=== PATIENT | female | born 2000 | race Caucasian/White ===

== ENCOUNTER 2024-08-16 10:17 | Emergency (ER) | payer SELFPAY ==
[2024-08-16 10:38] VITALS: BP 135/88; PULSE 104; RESP 16; TEMP 36.3; O2SAT 98
--- NOTE | 2024-08-16 10:42 | ED_ITS ---
HPI - URI/Sore Throat General Chief Complaint: Upper Respiratory Infection Stated Complaint: congestion/ bad cough Time Seen by Provider: 08/16/24 10:49 Source: patient, RN notes reviewed and old records reviewed Mode of arrival: ambulatory Limitations: no limitations History of Present Illness HPI Narrative: 24-year-old female presents to the [facility] with bilateral ear pain, pressure, congestion, cough that started on Tuesday. Has been taking DayQuil, NyQuil and Tylenol. Treatments prior to arrival: acetaminophen and cold medicine Related Data Allergies Allergy/AdvReac Type Severity Reaction Status Date / Time No Known Allergies Allergy Verified 08/16/24 10:47 Review of Systems Review of Systems: All systems reviewed & are unremarkable except as noted in HPI and below Constitutional: Constitutional: Reports as per HPI, Reports body ache(s), Reports fatigue and Denies fever(s) ENT: Reports as per HPI, Reports otalgia and Reports sinus pain Cardiovascular: Cardiovascular: Reports no additional cardiovascular complaints, Denies chest pain and Denies dyspnea Respiratory: Respiratory: Reports no additional respiratory complaints, Denies chest congestion, Denies cough and Denies dyspnea Musculoskeletal: Musculoskeletal: Reports no additional musculoskeletal complaints Integumentary/Breasts: Skin/Breast: Reports system reviewed and no additional complaints, except as docu PMFSH Comments At the time of my signature, I reviewed and agree with the nursing past medical, surgical, social, and family history. There is no relevant family history pertinent to the patient complaint. Exam Const: General: cooperative, no acute distress, well developed, alert, tired appearing, uncomfortable and well nourished Nutritional Appearance: well nourished and obese Orientation/consciousness: patient oriented x3 Limitations: no limitations HENMT: Head: normal to inspection Ears: hearing grossly normal bilaterally, external ears normal, EAC's normal, mastoids normal, no periauricular adenopathy and TM abnormal bulging bilateral, erythematous on the left and with fluid behind the TM on the right Face/Nose/Sinus: Normal external nose present and Nasal discharge present clear bilateral Throat: tonsils normal, postnasal drainage and no uvular edema Eyes: General: appearance normal, both eyes and all related structures Alignment and Position: alignment normal Neck: Neck: normal visual inspection, full ROM, no lymphadenopathy and no meningeal signs Chest: Chest palpation & inspection: normal inspection of the chest Resp: Effort & Inspection: normal respiratory effort and able to speak in complete sentences Auscultation: clear to auscultation bilaterally, no crackles, no rales, no rhonchi and no wheezes Cardio: Rate: regular rate Skin: General skin exam: normal color and no rashes or lesions noted Neuro: General: patient oriented x3, gait normal, moves all extremities and no meningeal signs Cognition (Neuro): normal cognition Speech: normal speech Gait exam (Neuro): Normal gait present Extrem: General: normal to inspection, full ROM, capillary refill normal and normal gait Psych: Appearance: grossly normal and well kempt Mental Status: mental status grossly normal Speech and movement: Normal speech and movement present and Clear speech present Affect: normal affect Attitude: cooperative Course Course Level of Care: Express Care Visit Vital Signs Vital signs: Vital Signs Temperature 97.3 F L 08/16/24 10:38 Pulse Rate 104 H 08/16/24 10:38 Respiratory Rate 16 08/16/24 10:38 Blood Pressure 135/88 08/16/24 10:38 Pulse Oximetry 98 08/16/24 10:38 Oxygen Delivery Room Air 08/16/24 10:38 Temperature 97.3 F L 08/16/24 10:38 Pulse Rate 104 H 08/16/24 10:38 Respiratory Rate 16 08/16/24 10:38 Blood Pressure 135/88 08/16/24 10:38 Pulse Oximetry 98 08/16/24 10:38 Oxygen Delivery Room Air 08/16/24 10:38 Reviewed MDM - URI/Sore Throat MDM Narrative Medical decision making narrative: Patient sitting in exam room. Nontoxic, vitals stable. Patient is negative flu COVID and strep. Will culture for strep Patient with erythema to the left TM, will treat with antibiotic for otitis media Patient appropriate for outpatient treatment with close follow-up Discharge instructions reviewed with patient, as well as provided in writing per nursing staff. The instructions also include specific and strict return/GO TO THE ER as well as f/u information. All questions have been answered, and the patient deny any further questions with discharge and discharge plan. Some parts of this dictation were generated by voice recognition software and may contain typographical and/or grammatical inaccuracies. Differential Diagnosis Differential diagnosis: Likely upper respiratory infection, otitis media, sinusitis, viral infection, bronchitis, influenza and pharyngitis Lab Data Labs: Lab Results 08/16/24 Range/Units 10:44 POC Influenza A Ag Negative (Negative) POC Influenza B Ag Negative (Negative) POC SARS CoV-2 Ag Negative (Negative) POC Grp A Strep Screen Negative (Negative) Reviewed Critical Care Time Critical Care Time Critical Care Time: No Discharge Plan Discharge Clinical Impression: Acute left otitis media, Post-nasal drainage Upper respiratory infection Qualifiers: URI type: unspecified viral URI Qualified Code(s): J06.9 - Acute upper respiratory infection, unspecified Patient Disposition: Home, Self-Care Condition: Stable Instructions: Antibiotic Form, Ear Infection (GEN), Postnasal Drip (DC) Additional Instructions: Take antibiotic as prescribed for the ear infection Your rapid strep swab was negative today at [facility]. A throat culture will be sent to the laboratory for further testing. If the test is positive, you will receive a phone call within 48 hours and an appropriate antibiotic will be initiated at that time. Your rapid COVID test were negative Your rapid flu test was negative It is very important to treat your symptoms. Drink plenty of water, Gatorade, Pedialyte, ice pops or Jell-O. -Alternate Tylenol and Motrin per package directions for fever or pain. You can alternate every 4 hours -Antihistamine medication such as Zyrtec/Claritin/Jenae during the day can help improve symptoms. -doing daily nasal irrigations can help relieve pressure your sinuses. Things like a Neti pot -Use Flonase twice a day for 5 days then daily to help reduce the inflammation and dry up your sinuses. -You can also use Mucinex. Be sure to drink plenty of water with this medication at least 8 ounces with every dose and it is important to drink 8 to 10 glasses of water per day. Water is a natural decongestant -Eat and drink things that are easy to swallow, like tea or soup, or popsicles. -Oral rinses such as: Salt water gargles and/or may use topical anesthetic (eg. Chloraseptic spray) or lozenges to relieve dryness or throat pain). -Frequent hand washing or hand patient assessment coordinator is one of the best ways to prevent spread of infection. -Using a vaporizer or humidifier at night will also help thin secretions and help with coughing up phlegm. -Follow up with primary care provider in 7-10 days if condition is not improving - For new or worsening symptoms go directly to the nearest ER Patient Language: [place] Prescriptions: New amoxicillin 875 mg tablet 875 mg PO Q12H Qty: 20 0RF Follow-up/Referrals: Zurdo Sharp MD [Physician] - PHYSICIAN,[facility]ER [Primary Care Provider] - Stand Alone Forms: Work/School Release IP Time of Disposition: 11:00
[2024-08-16 10:58] LABS: EDSTREPNEGPOS1 Negative (Negative)
--- OUTSIDE RECORDS SUMMARY | 2024-08-16 11:01 | XMS_ITS | Clinical Summary ---
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 Potassium, pl 3.4 3.3 - 4.9 mmol/L [facility] (SHY) Chloride 106 97 - 110 mmol/L [facility] (SHY) CO2 21(L) 22 - 32 mmol/L [facility] (SHY) Anion gap 11 2 - 15 mmol/L [facility] (SHY) BUN 5(L) 6 - 25 mg/dL [facility] (SHY) Creatinine 0.65 0.60 - 1.10 mg/dL [facility] (SHY) Glucose 98 70 - 199 mg/dL [facility] (SHY) Comment: Interpretive Data Fasting glucose >/= 126 mg/dl is diagnostic for diabetes. Fasting is defined as no caloric intake for at least 8 hours. Fasting glucose between 100 mg/dl to 125 mg/dl is diagnostic of prediabetes. In a patient with classic symptoms of hyperglycemia or hyperglycemic crisis, a random glucose >/= 200 mg/dl is diagnostic for diabetes. In the absence of unequivocal hyperglycemia, results should be confirmed by repeat testing. The classification and Diagnosis of Diabetes Diabetes Care 2021; 46: S19-S40. Current interpretive data was last revised 2022. Calcium 8.1(L) 8.5 - 10.3 mg/dL [facility] (SHY) Blood 06/06/2024 8:58 AM COURTROOM DEPUTY OR CALENDAR CLERK 06/06/2024 9:06 AM COURTROOM DEPUTY OR CALENDAR CLERK us Rosemary Tolentino NP LAB BLOOD ORDERABLE S Final Result Performing Organization Address [facility]/ZIP Co de Phone Number NICKY ZEE (SHY) 1 [facility] [place] [address] * TB test, quantiferon gold (06/06/2024 3:40 AM COURTROOM DEPUTY OR CALENDAR CLERK) [facility] Quantiferon TB Gold Negative Negative [place] [facility] Comment: No interferon-gamma response to M. tuberculosis antigens was detected. Latent infection with M. tuberculosis is unlikely. A single negative result does not exclude infection with M. tuberculosis. In patients at high risk for M.tuberculosis infection, a second test should be considered in accordance with the 2017 ATS/IDSA/CDC Clinical Practice Guidelines for Diagnosis of Tuberculosis in Adults and Children [Xanderinsohn DM et. al. Clin. Infect. Dis. 2017;64(2):111-115]. The reference range for the 'TB1 Ag minus Nil Result' and 'TB2 Ag minus Nil Result' is an Interferon-gamma level <0.35 IU/mL. TB-Nil 0.00 IUnits/mL [facility] (SHY) TB2-Nil 0.00 IUnits/mL [facility] (SHY) Mitogen-Nil 1.94 IUnits/mL [facility] (SHY) NIL 0.02 IUnits/mL [facility] (SHY) Comment: Test Performed by: [place] [id number] Meat Team Lead: Yany Gee Ph.D.; CLIA# [id number] Blood 06/06/2024 3:40 AM COURTROOM DEPUTY OR CALENDAR CLERK 06/06/2024 3:46 AM COURTROOM DEPUTY OR CALENDAR CLERK us Marsha FERRARA LAB BLOOD ORDERABLES Fin al Result Performing Organization Address City/[facility]/ZIP Co de Phone Number NICKY ZEE (TROY) [address] [place] [address] [facility] * (ABNORMAL) Calprotectin, fecal (06/05/2024 1:36 PM COURTROOM DEPUTY OR CALENDAR CLERK) Calprotectin, fecal >3000(H) <50.0 (Normal) mcg/g [facility] Comment: Interpretation: Abnormal (>120 mcg/g) Test Performed by: [facility] [address] [place] [address] Meat Team Lead: Yany Gee Ph.D.; IA# [id number] Stool 06/05/2024 1:36 PM COURTROOM DEPUTY OR CALENDAR CLERK 06/05/2024 1:43 PM COURTROOM DEPUTY OR CALENDAR CLERK Marsha FERRARA LAB BODY FLUIDS AND STOO LS ORDERABLES Final Result Performing Organization Address City/[facility]/ZIP Co de Phone Number [facility] (SHY) 1 [facility] [place] [address] [place] [facility] * (ABNORMAL) Leukocytes, fecal (06/05/2024 1:36 PM COURTROOM DEPUTY OR CALENDAR CLERK) WBC, fecal Many leukocyte s(A) No leukocytes Comment: Interpretive Data Testing performed by microsopy. Current Interpretive Data was last revised on 2022 Stool 06/05/2024 1:36 PM COURTROOM DEPUTY OR CALENDAR CLERK 06/05/2024 1:43 PM COURTROOM DEPUTY OR CALENDAR CLERK Marsha FERRARA LAB BODY FLUIDS AND STOO LS ORDERABLES Final Result [facility] (SHY) [address] [facility] [place] [address] * Cryptosporidium and Giardia antigen assay Stool (06/05/2024 1:36 PM COURTROOM DEPUTY OR CALENDAR CLERK) Giardia Ag Negative Negative Comment:Testing performed by : [facility], [address] [facility]., [address] Cryptosporidium Ag Negative Negative [place] ZEE (TROY) Comment: Interpretive data: Testing performed by the [facility] using an immunoassay that detects Cryptosporidium and Giardia antigens in stool specimens. If comprehensive examination for ova and parasites is required, please request Ova and Parasite Examination . Testing performed by: [facility], [address] [place]., [address] Stool 06/05/2024 1:36 PM COURTROOM DEPUTY OR CALENDAR CLERK 06/05/2024 6:03 PM COURTROOM DEPUTY OR CALENDAR CLERK Marsha FERRARA LAB MICROBIOLOGY - GENER AL ORDERABLES Final Result Performing Organization Address [facility] de Phone Number NICKY ZEE (SHY) [address] [facility] [place] [address] * Stool culture Stool Rectum (06/05/2024 1:36 PM COURTROOM DEPUTY OR CALENDAR CLERK) Direct Specimen Exam Shiga Toxin Testing: Antigen detection assay for Shiga-toxin NEGATIVE for Shiga Toxin 1 and Shiga Toxin 2. Comment:Testing performed by : [facility], [address] [place]., [address] Report Final Report: No growth of enteric bacterial pathogens NICKY ZEE (SYH) Comment:Testing performed by : [facility], [address] [place] [address] Stool (Rectum) 06/05/2024 1: 36 PM COURTROOM DEPUTY OR CALENDAR CLERK 06/05/2024 6:02 PM COURTROOM DEPUTY OR CALENDAR CLERK Narrative NICKY ZEE (SHY) - 06/09/2024 12:30 PM COURTROOM DEPUTY OR CALENDAR CLERK Specimen received culture and sensitivity stool transport vial Testing performed by [facility] ([phone]). Routine stool cultures include procedures to detect Salmonella, Shigella, Edwardsiella, Aeromonas, Pleisiomonas, Campylobacter, Yersinia, E. coli O157, and Shiga-like toxins. Vibrio is cultured only upon special request. If Vibrio is suspected, please call the laboratory at [phone]. Interpretive data was last updated October 04, 2016. Marsha FERRARA LAB MICROBIOLOGY - GENER AL ORDERABLES Final Result Performing Organization Address [facility] de Phone Number N[facility]Y ZEE (SHY) [address] [facility] [place] [address] * Hemochromatosis HFE Gene Analysis (06/05/2024 11:58 AM COURTROOM DEPUTY OR CALENDAR CLERK) HFE Genotype Negative [facility] Comment:Testing performed by : [facility], [address] [place]., [address] HFE p.C282Y Negative NICKY ANAYA (TROY) Comment:Testing performed by : [facility], [address] [facility], [address] HFE p.H63D Negative NICKY [place] (TROY) Comment:Testing performed by : [facility], [address] [facility], [address] HFE Interpretation This genotype suggests low risk of hereditary hemochromatosis (HH) but does not rule out diagnosis or risk for HH. Approximately 6% of Caucasians with HH in [place] have this genotype. The frequency in other ethnicities may vary. Correlation of clinical findings and family history with genotype results is recommended for establishing a diagnosis of HH. HH is an autosomal recessive disorder of iron metabolism that results in iron overload and potential organ failure. It is one of the most common genetic disorders in individuals of - ancestry, with an estimated carrier frequency of 10%. HH is associated with variants in the HFE gene. Most individuals with HH (60-90%) are homozygous for the p.C282Y variant. A smaller percentage of affected individuals are either compound heterozygous for the p.C282Y and p.H63D variants (3%-8%), or homozygous for the p.H63D variant (2%). Genetic counseling is recommended for discussion of the clinical implications of this result. NICKY ZEE (TROY) Comment:Testing performed by : [facility], [address] [place]., [address] HFE Specimen Whole Blood ANDREA ZEE (TROY) Comment:Testing performed by : [facility], [address] [place] [address] HFE Result Review Final report reviewed by: Christal Higgins BA, VANESSA([facility]) Chemical Preparer, on 06/08/2024 10:43:55 CST. [facility] (SHY) Comment: Interpretive Data Method: This assay detects the two variants in the HFE gene, p.C282Y (NM_000410.2: c.845G>A) and p.H63D (NM_000410.2: c.187C>G), that are commonly associated with HH. The variants are detected by a multiplex PCR based assay performed on the [employer] Fast Dx Real-Time PCR instrument. Limitations: Bone Marrow transplants from allogenic donors may interfere with interpretation of test results. Alternative specimen types including cultured fibroblasts may be necessary for accurate testing results. This assay does not rule out the presence of other disease-causing mutations in the HFE gene or in other genes associated with HH. Since genetic variation and additional factors can affect the accuracy of genotyping, these results should be interpreted in the context of clinical findings, family history, and other laboratory testing (e.g. serum transferrin-iron saturation and serum ferritin). This test was developed and its performance characteristics determined by the [facility] at [facility] in a manner consistent with CLIA requirements. This test has not been cleared or approved by the U.S. Food and Drug Administration. References: Dimitris KJ, Laurie SANCHES, Suresh CC, et al. Zrbu-wmyjafny-cjgyigb disease in HFE hereditary hemochromatosis. N Engl J Med. 2008;358:221 3 0. Marc BR, Parveen PC, Ching KV, et al. Diagnosis and management of hemochromatosis: 2011 practice guideline by the [place] Association for the Study of Liver Diseases. Hepatology. 2011;54:328 4 3. Abdon LAVELLE, Ferrari CQ, Kaleb RT. HFE gene: structure, function, mutations, and associated iron abnormalities. Gene. 2015;574:179 9 2. Luis KhalilJ, Jean LM, Carin LB, et al. Clinical and biochemical abnormalities in people heterozygous for hemochromatosis. N Engl J Med. 1996;335:1799 8 05. Kurt FERRARA, Curtis CHAEVZ, Tan DJ, Ran Nicholas D, Maddy E, Justa GloriaK. A population- based study of the biochemical and clinical expression of the H63D hemochromatosis mutation. Gastroenterology. 2002;122:646 5 1. Nils Lozanoi NA, Chris GW, et al. HFE C282Y/H63D compound heterozygotes are at low risk of hemochromatosis-related morbidity. Hepatology. 2009;50:94 1 01. Javier NOVA, Karina G, Crispin W. HFE gene and hereditary hemochromatosis: a HuGE review. Human Genome Epidemiology. Am J Epidemiol. 2001 Dec 28; 154(3):193-206. Parvin A, Krystin C, Layne Everett, et al. Two novel nonsense mutations of HFE gene in five unrelated [place] patients with hemochromatosis. Gastroenterology. 2000;119:441 5 . Shahida EP, Grady BA, Aden EL, et al. Screening for hereditary hemochromatosis: a systematic review for the U.S. Preventive Services Task Force. Rohini Iv Therapy Nurse Med. 2006;145:209 2 3. This test was performed at: [facility], [facility], [facility]#[id number], Rohini Rosen, Ph.D., [place], [address], [place] Current interpretive data was last revised 2021. Testing performed by: [facility], 1 [facility], [place]., [address] Blood 06/05/2024 11:5 8 AM COURTROOM DEPUTY OR CALENDAR CLERK 06/05/2024 5:41 PM COURTROOM DEPUTY OR CALENDAR CLERK Marsha FERRARA LAB GENETIC TESTING [place] l Result [facility] TROY) [address] [facility] [place] [address] [facility] * XR Chest 1 View (06/05/2024 10:51 AM COURTROOM DEPUTY OR CALENDAR CLERK) Anatomical Region Laterality Modality Body, Chest N/A Computed Radiogr aphy 06/05/2024 10:5 8 AM COURTROOM DEPUTY OR CALENDAR CLERK Narrative 06/05/2024 10:58 AM COURTROOM DEPUTY OR CALENDAR CLERK EXAM DESCRIPTION: XR CHEST 1 VIEW REASON FOR STUDY: UC workup Ulcerative colitis who comes emergency department today for worsening abdominal pain. Patient states that she has had rectal bleeding for the last 6 months but over last 2 days her abdominal pain has worsened. TECHNIQUE: 1 radiographic view(s) of the chest. COMPARISON: 09/25/2021 FINDINGS: LUNGS: No focal opacity, pleural effusion, or pneumothorax. HEART/MEDIASTINUM: Cardiac silhouette normal in size. Mediastinal and hilar contours appear normal. LINES/TUBES: None. BONES: No acute osseous abnormality. IMPRESSION: No acute pulmonary process. THIS IS AN ELECTRONICALLY VERIFIED FINAL REPORT 06/05/2024 10:58 AM - Electronically signed by Hernandez Brown M.D. MM: MM Report ID: [id number] Reading Location: [id number] Procedure Note Hernandez Brown MD - 06/05/2024 EXAM DESCRIPTION: XR CHEST 1 VIEW REASON FOR STUDY: UC workup Ulcerative colitis who comes emergency department today for worsening abdominal pain. Patient states that she has had rectal bleeding for thelast 6 months but over last 2 days her abdominal pain has worsened. TECHNIQUE: 1 radiographic view(s) of the chest. COMPARISON: 09/25/2021 FINDINGS: LUNGS: No focal opacity, pleural effusion, or pneumothorax. HEART/MEDIASTINUM: Cardiac silhouette normal in size. Mediastinal andhilar contours appear normal. LINES/TUBES: None. BONES: No acute osseous abnormality. IMPRESSION: No acute pulmonary process. THIS IS AN ELECTRONICALLY VERIFIED FINAL REPORT 06/05/2024 10:58 AM - Electronically signed by Hernandez Brown M.D. MM: MM Report ID: [id number] Reading Location: [id number] Marsha FERRARA IMG XR PROCEDURES Final Result * eGFR (06/05/2024 6:43 AM COURTROOM DEPUTY OR CALENDAR CLERK) eGFR >90 >=60 mL/min/1. 73 m2 Comment: Interpretive Data Reference Interval Normal >/= 90 mL/min/1.73m2 Mildly decreased* 60 - 89 mL/min/1.73m2 Mildly to moderately decreased 45 - 59 mL/min/1.73m2 Moderately to severely decreased 30 - 44 mL/min/1.73m2 Severely decreased 15 - 29 mL/min/1.73m2 Kidney Failure < 15 mL/min/1.73m2 *Relative to young adult level Estimated glomerular filtration rate is determined by the 2020 CKD-EPI equation recommended by the National Kidney Foundation (A Unifying Approach to GFR Estimation: Recommendations of the NKF-ASK Task Force on Reassessing the Inclusion of Race in Diagnosing Kidney Disease, JASN 2020). The CKD-EPI equation should not be used for patients with unstable renal function and has not been validated in children and those over 70. Current interpretive data was last reviewed 2021. Blood 06/05/2024 6:43 AM COURTROOM DEPUTY OR CALENDAR CLERK 06/05/2024 7:06 AM COURTROOM DEPUTY OR CALENDAR CLERK us Jill Rogers MD LAB BLOOD ORDERABLE S Final Result [facility] (TROY) 1 [facility] Department of Laboratories [place] [id number] * (ABNORMAL) Differential, auto (06/05/2024 6:43 AM COURTROOM DEPUTY OR CALENDAR CLERK) Neutrophil abs 18.5(H) 1.5 - 6.5 K/cumm Imm gran abs 0.2(H) 0.0 - 0.1 K/cumm [facility] (SHY) Lymphocyte abs 0.7(L) 0.8 - 3.3 K/cumm [facility] (SHY) Monocyte abs 0.5 0.2 - 0.8 K/cumm [facility] (SHY) Eosinophil abs 0.1 0.0 - 0.5 K/cumm [facility] (SHY) Basophil abs 0.0 0.0 - 0.1 K/cumm [facility] (SHY) Neutrophil pct 92.8 % [facility] (SHY) Comment: Interpretive Data Percent cell count reference ranges are not reported, since discordance with absolute values may lead to misinterpretation of CBC data. Current Interpretive Data was last revised on 2017. Imm gran pct 1.0 % [facility] (SHY) Comment: Interpretive Data Percent cell count reference ranges are not reported, since discordance with absolute values may lead to misinterpretation of CBC data. Current Interpretive Data was last revised on 2017. Lymphocyte pct 3.4 % [facility] (SHY) Comment: Interpretive Data Percent cell count reference ranges are not reported, since discordance with absolute values may lead to misinterpretation of CBC data. Current Interpretive Data was last revised on 2017. Monocyte pct 2.3 % [facility] (SHY) Comment: Interpretive Data Percent cell count reference ranges are not reported, since discordance with absolute values may lead to misinterpretation of CBC data. Current Interpretive Data was last revised on 2017. Eosinophil pct 0.3 % [facility] (SHY) Comment: Interpretive Data Percent cell count reference ranges are not reported, since discordance with absolute values may lead to misinterpretation of CBC data. Current Interpretive Data was last revised on 2017. Basophil pct 0.2 % [facility] (SHY) Comment: Interpretive Data Percent cell count reference ranges are not reported, since discordance with absolute values may lead to misinterpretation of CBC data. Current Interpretive Data was last revised on 2017. Blood 06/05/2024 6:43 AM COURTROOM DEPUTY OR CALENDAR CLERK 06/05/2024 7:06 AM COURTROOM DEPUTY OR CALENDAR CLERK us Jill Rogers MD LAB BLOOD ORDERABLE S Final Result NICK[facility] ZEE (SHY) [address] [facility] [place] [address] * (ABNORMAL) CBC with auto differential (06/05/2024 6:43 AM COURTROOM DEPUTY OR CALENDAR CLERK) WBC 19.9(H) 3.8 - 9.9 K/cumm Hgb 7.6(L) 11.9 - 15.5 g/dL [facility] (SHY) Hct 24.8(L) 35.6 - 45.5 % [facility] (SHY) Plt 513(H) 150 - 400 K/cumm [facility] (SHY) MPV 9.3 9.1 - 12.3 fL [facility] (SHY) RBC 3.09(L) 3.90 - 5.20 M/cumm [facility] (SHY) MCV 80.3(L) 81.3 - 96.4 fL [facility] (SHY) MCH 24.6(L) 27.1 - 33.3 pg [facility] (SHY) MCHC 30.6(L) 32.3 - 35.7 g/dL [facility] (SHY) RDW CV 13.6 11.1 - 14.9 % [facility] (SHY) RDW SD 39.8 35.7 - 48.1 fL [facility] (SHY) NRBC abs 0.00 0.00 - 0.01 K/cumm [facility] (SHY) Blood 06/05/2024 6:43 AM COURTROOM DEPUTY OR CALENDAR CLERK 06/05/2024 7:06 AM COURTROOM DEPUTY OR CALENDAR CLERK Jill Rogers MD LAB BLOOD ORDERABLE S Final Result NICKY ZEE (TROY) [address] [facility] [place] [address] * Phosphorus (06/05/2024 6:43 AM COURTROOM DEPUTY OR CALENDAR CLERK) Phosphorus, pl 4.0 2.3 - 4.5 mg/dL Blood 06/05/2024 6:43 AM COURTROOM DEPUTY OR CALENDAR CLERK 06/05/2024 7:06 AM COURTROOM DEPUTY OR CALENDAR CLERK Ninoska Ortiz MD LAB BLOOD ORDERABLES Fin al Result N[facility]Y ZEE (TROY) [address] [facility] [place] [address] * Magnesium (06/05/2024 6:43 AM COURTROOM DEPUTY OR CALENDAR CLERK) Magnesium 2.1 1.4 - 2.5 mg/dL Blood 06/05/2024 6:43 AM COURTROOM DEPUTY OR CALENDAR CLERK 06/05/2024 7:06 AM COURTROOM DEPUTY OR CALENDAR CLERK us Ninoska Ortiz MD LAB BLOOD ORDERABLES Fin al Result [facility] (SHY) [address] [facility] [place] [address] * (ABNORMAL) Comprehensive metabolic panel (06/05/2024 6:43 AM COURTROOM DEPUTY OR CALENDAR CLERK) Sodium 139 135 - 145 mmol/L Potassium, pl 4.3 3.3 - 4.9 mmol/L [facility] (SHY) Chloride 107 97 - 110 mmol/L [facility] (SHY) CO2 23 22 - 32 mmol/L [facility] (SHY) Anion gap 10 2 - 15 mmol/L [facility] (SHY) BUN 5(L) 6 - 25 mg/dL [facility] (SHY) Creatinine 0.56(L) 0.60 - 1.10 mg/dL [facility] (SHY) Glucose 135 70 - 199 mg/dL [facility] (SHY) Comment: Interpretive Data Fasting glucose >/= 126 mg/dl is diagnostic for diabetes. Fasting is defined as no caloric intake for at least 8 hours. Fasting glucose between 100 mg/dl to 125 mg/dl is diagnostic of prediabetes. In a patient with classic symptoms of hyperglycemia or hyperglycemic crisis, a random glucose >/= 200 mg/dl is diagnostic for diabetes. In the absence of unequivocal hyperglycemia, results should be confirmed by repeat testing. The classification and Diagnosis of Diabetes Diabetes Care 2021; 46: S19-S40. Current interpretive data was last revised 2022. Calcium 8.3(L) 8.5 - 10.3 mg/dL [facility] (SHY) Bilirubin, total 0.2 0.1 - 1.2 mg/dL [facility] (SHY) Protein, pl 6.0(L) 6.5 - 8.5 g/dL [facility] (SHY) Albumin 3.3(L) 3.5 - 5.0 g/dL [facility] (SHY) Alk phos 103 40 - 130 Units/L [facility] (SHY) ALT 6(L) 7 - 45 Units/L [facility] (SHY) AST 12 10 - 45 Units/L [facility] (SHY) Blood 06/05/2024 6:43 AM COURTROOM DEPUTY OR CALENDAR CLERK 06/05/2024 7:06 AM COURTROOM DEPUTY OR CALENDAR CLERK Jill Rogers MD LAB BLOOD ORDERABLE S Final Result NICK[facility] ZEE (SHY) [address] [facility] [place] [address] * ID CRITICAL CARE ILL/INJURED PATIENT INIT 30-74 MIN (06/04/2024 10:03 PM COURTROOM DEPUTY OR CALENDAR CLERK) Narrative Jill Rogers MD - 06/04/2024 10:03 PM COURTROOM DEPUTY OR CALENDAR CLERK Jill Rogers MD 06/04/2024 10:07 PM Critical Care Performed by: Jill Rogers MD Authorized by: Jill Rogers MD Critical care provider statement: As reflected in the history, physical exam, orders, notes, and/or MDM, I was personally present while the patient was critically ill and provided critical care services for 45 minutes, excluding time involved in separately billable procedures. Critical care was necessary to treat or prevent imminent or life-threatening deterioration of the following condition(s): acute gastrointestinal bleed (GIB) Critical care was time spent by me providing the following: continuous telemetry and serial bedside patient exams I provided emergent necessary critical care medicine services to this patient. I ordered and reviewed test results and/or imaging studies. I spent time discussing the management of this critically ill patient with consultants and the medical staff. I spent time discussing the management and therapeutic options for this critically ill patient with the patient themselves or with the appropriate designated surrogate decision-maker. I spent time documenting in the medical record. Jill Rogers MD IN CLINIC/BEDSIDE O RDERABLES Final Result * CTA Abdomen Pelvis (06/04/2024 8:45 PM COURTROOM DEPUTY OR CALENDAR CLERK) Anatomical Region Laterality Modality Body N/A Computed Tomogra phy 06/04/2024 8:49 PM COURTROOM DEPUTY OR CALENDAR CLERK Narrative 06/04/2024 9:00 PM COURTROOM DEPUTY OR CALENDAR CLERK EXAM DESCRIPTION: CTA ABDOMEN PELVIS REASON FOR STUDY: GI bleed Patient presents with abdominal pain and coffee ground stools today. Hx of GI bleed. Patient reports hx of IBS. TECHNIQUE: CTA scan of the abdomen and pelvis performed without and with intravenous and without oral contrast using helical scanning technique with dynamic intravenous contrast injection. Precontrast, arterial, and portal venous phase images of the abdomen and pelvis were acquired. Images reviewed with lung, soft tissue and bone windows. Reconstructed coronal and sagittal MPR images reviewed. All images stored on PACS. 3D MIP images rendered on scanning unit and reviewed at time of interpretation. Automated exposure control was used as a dose optimization technique for this examination. CONTRAST TYPE/DOSE: 100mL of IOVERSOL 350 MG IODINE/ML INTRAVENOUS SYRINGE injected via intravenous COMPARISON: 04/18/2024 FINDINGS: VASCULATURE: No dissection, aneurysm, intramural hematoma, rupture, or penetrating atherosclerotic ulcer. No large vessel occlusion. CELIAC TRUNK: No flow limiting stenosis, dissection, or aneurysm. SUPERIOR MESENTERIC ARTERY: No flow limiting stenosis, dissection, or aneurysm. RIGHT RENAL ARTERY: No flow limiting stenosis, dissection, or aneurysm. LEFT RENAL ARTERY: No flow limiting stenosis, dissection, or aneurysm. INFERIOR MESENTERIC ARTERY: No flow limiting stenosis, dissection, or aneurysm. AORTA: No flow limiting stenosis, dissection, or aneurysm. ILIAC ARTERIES: No flow limiting stenosis, dissection, or aneurysm. LOWER CHEST: No significant pulmonary abnormalities. No effusion. LIVER: Normal size. No identified cystic or solid masses. GALLBLADDER: No stones identified. No wall thickening or inflammatory changes. BILE DUCTS: No intrahepatic or extrahepatic ductal dilatation. SPLEEN: Normal size. No focal lesions. PANCREAS: No identified cystic or solid masses. No significant calcifications. No adjacent inflammation or peripancreatic fluid collections. Pancreatic duct not dilated. ADRENALS: Normal. KIDNEYS/URINARY TRACT: No identified significant cystic or solid masses. No stones. No hydronephrosis or hydroureter. Symmetric enhancement. Normal bladder. GI: There is diffuse thickening of the wall of the entire colon with luminal narrowing and inflammatory stranding in the surrounding fat suggesting inflammatory or infectious colitis. No bowel obstruction or abscess. Multiple subcentimeter short axis diameter lymph nodes are seen within the mesentery adjacent to the colon. PERITONEUM: Trace free fluid within the pelvis. No evidence of free air. RETROPERITONEUM: No mass or adenopathy. REPRODUCTIVE: No significant abnormality. MUSCULOSKELETAL: No significant abnormality. OTHER: No other abnormality. IMPRESSION: No evidence of abdominal aortic aneurysm or dissection. Diffuse thickening of the wall of the entire colon with luminal narrowing and inflammatory stranding in the surrounding fat suggesting inflammatory or infectious colitis. No bowel obstruction or abscess. THIS IS AN ELECTRONICALLY VERIFIED FINAL REPORT 06/04/2024 9:00 PM - Electronically signed by Koffi Griffin M.D. KT: KT Report ID: [id number] Reading Location: [id number] Procedure Note Koffi Griffin MD - 06/04/2024 EXAM DESCRIPTION: CTA ABDOMEN PELVIS REASON FOR STUDY: GI bleed Patient presents with abdominal pain and coffee ground stools today. Hx ofGI bleed. Patient reports hx of IBS. TECHNIQUE: CTA scan of the abdomen and pelvis performed without and with intravenous and without oral contrast using helical scanning techniquewith dynamic intravenous contrast injection. Precontrast, arterial, and portal venous phase images of the abdomen and pelvis were acquired. Images reviewed with lung, soft tissue and bone windows. Reconstructed coronaland sagittal MPR images reviewed. All images stored on PACS. 3D MIP images rendered on scanning unit and reviewed at time of interpretation.Automated exposure control was used as a dose optimization technique for this examination. CONTRAST TYPE/DOSE: 100mL of IOVERSOL 350 MG IODINE/ML INTRAVENOUSSYRINGE injected via intravenous COMPARISON: 04/18/2024 FINDINGS: VASCULATURE: No dissection, aneurysm, intramural hematoma, rupture, or penetrating atherosclerotic ulcer. No large vessel occlusion. CELIAC TRUNK: No flow limiting stenosis, dissection, or aneurysm. SUPERIOR MESENTERIC ARTERY: No flow limiting stenosis, dissection, or aneurysm. RIGHT RENAL ARTERY: No flow limiting stenosis, dissection, or aneurysm. LEFT RENAL ARTERY: No flow limiting stenosis, dissection, or aneurysm. INFERIOR MESENTERIC ARTERY: No flow limiting stenosis, dissection, or aneurysm. AORTA: No flow limiting stenosis, dissection, or aneurysm. ILIAC ARTERIES: No flow limiting stenosis, dissection, or aneurysm. LOWER CHEST: No significant pulmonary abnormalities. No effusion. LIVER: Normal size. No identified cystic or solid masses. GALLBLADDER: No stones identified. No wall thickening or inflammatory changes. BILE DUCTS: No intrahepatic or extrahepatic ductal dilatation. SPLEEN: Normal size. No focal lesions. PANCREAS: No identified cystic or solid masses. No significant calcifications. No adjacent inflammation or peripancreatic fluidcollections. Pancreatic duct not dilated. ADRENALS: Normal. KIDNEYS/URINARY TRACT: No identified significant cystic or solid masses.No stones. No hydronephrosis or hydroureter. Symmetric enhancement. Normal bladder. GI: There is diffuse thickening of the wall of the entire colon withluminal narrowing and inflammatory stranding in the surrounding fat suggesting inflammatory or infectious colitis. No bowel obstruction or abscess. Multiple subcentimeter short axis diameter lymph nodes are seen within the mesentery adjacent to the colon. PERITONEUM: Trace free fluid within the pelvis. No evidence of freeair. RETROPERITONEUM: No mass or adenopathy. REPRODUCTIVE: No significant abnormality. MUSCULOSKELETAL: No significant abnormality. OTHER: No other abnormality. IMPRESSION: No evidence of abdominal aortic aneurysm or dissection. Diffuse thickening of the wall of the entire colon with luminal narrowingand inflammatory stranding in the surrounding fat suggesting inflammatory or infectious colitis. No bowel obstruction or abscess. THIS IS AN ELECTRONICALLY VERIFIED FINAL REPORT 06/04/2024 9:00 PM - Electronically signed by Koffi Griffin M.D. KT: KT Report ID: [id number] Reading Location: [place] [address] David Franco MD [facility] CT PROCEDURES Final Result * eGFR (06/04/2024 7:21 PM COURTROOM DEPUTY OR CALENDAR CLERK) eGFR >90 >=60 mL/min/1. 73 m2 Comment: Interpretive Data Reference Interval Normal >/= 90 mL/min/1.73m2 Mildly decreased* 60 - 89 mL/min/1.73m2 Mildly to moderately decreased 45 - 59 mL/min/1.73m2 Moderately to severely decreased 30 - 44 mL/min/1.73m2 Severely decreased 15 - 29 mL/min/1.73m2 Kidney Failure < 15 mL/min/1.73m2 *Relative to young adult level Estimated glomerular filtration rate is determined by the 2020 CKD-EPI equation recommended by the National Kid[employer] (A Unifying Approach to GFR Estimation: Recommendations of the NKF-ASK Task Force on Reassessing the Inclusion of Race in Diagnosing Kidney Disease, JASN 2020). The CKD-EPI equation should not be used for patients with unstable renal function and has not been validated in children and those over 70. Current interpretive data was last reviewed 2021. Blood 06/04/2024 7:21 PM COURTROOM DEPUTY OR CALENDAR CLERK 06/04/2024 7:28 PM COURTROOM DEPUTY OR CALENDAR CLERK us Jill Rogers MD LAB BLOOD ORDERABLE S Final Result [facility] ([facility]) [facility] [place] [address] * (ABNORMAL) Differential, auto (06/04/2024 7:21 PM COURTROOM DEPUTY OR CALENDAR CLERK) Neutrophil abs 10.3(H) 1.5 - 6.5 K/cumm Imm gran abs 0.2(H) 0.0 - 0.1 K/cumm [facility] ([place]) Lymphocyte abs 1.8 0.8 - 3.3 K/cumm [facility] ([place]) Monocyte abs 1.0(H) 0.2 - 0.8 K/cumm [facility] ([place]) Eosinophil abs 0.4 0.0 - 0.5 K/cumm [facility] ([place]) Basophil abs 0.0 0.0 - 0.1 K/cumm [facility] ([place]) Neutrophil pct 75.4 % [facility] ([place]) Comment: Interpretive Data Percent cell count reference ranges are not reported, since discordance with absolute values may lead to misinterpretation of CBC data. Current Interpretive Data was last revised on 2017. Imm gran pct 1.1 % [facility] ([facility]) Comment: Interpretive Data Percent cell count reference ranges are not reported, since discordance with absolute values may lead to misinterpretation of CBC data. Current Interpretive Data was last revised on 2017. Lymphocyte pct 13.1 % [facility] ([facility]) Comment: Interpretive Data Percent cell count reference ranges are not reported, since discordance with absolute values may lead to misinterpretation of CBC data. Current Interpretive Data was last revised on 2017. Monocyte pct 7.2 % [facility] ([place]) Comment: Interpretive Data Percent cell count reference ranges are not reported, since discordance with absolute values may lead to misinterpretation of CBC data. Current Interpretive Data was last revised on 2017. Eosinophil pct 2.9 % [facility] ([facility]) Comment: Interpretive Data Percent cell count reference ranges are not reported, since discordance with absolute values may lead to misinterpretation of CBC data. Current Interpretive Data was last revised on 2017. Basophil pct 0.3 % [facility] ([facility]) Comment: Interpretive Data Percent cell count reference ranges are not reported, since discordance with absolute values may lead to misinterpretation of CBC data. Current Interpretive Data was last revised on 2017. Blood 06/04/2024 7:21 PM COURTROOM DEPUTY OR CALENDAR CLERK 06/04/2024 7:28 PM COURTROOM DEPUTY OR CALENDAR CLERK us Jill Rogers MD LAB BLOOD ORDERABLE S Final Result [facility] ([place]) [address] [facility] [place] [address] * (ABNORMAL) CBC with auto differential (06/04/2024 7:21 PM COURTROOM DEPUTY OR CALENDAR CLERK) WBC 13.7(H) 3.8 - 9.9 K/cumm Hgb 8.4(L) 11.9 - 15.5 g/dL [facility] ([place]) Hct 27.5(L) 35.6 - 45.5 % [facility] ([place]) Plt 599(H) 150 - 400 K/cumm [facility] ([place]) MPV 9.3 9.1 - 12.3 fL [facility] ([place]) RBC 3.46(L) 3.90 - 5.20 M/cumm [facility] ([place]) MCV 79.5(L) 81.3 - 96.4 fL [facility] ([place]) MCH 24.3(L) 27.1 - 33.3 pg [facility] ([place]) MCHC 30.5(L) 32.3 - 35.7 g/dL [facility] ([place]) RDW CV 13.7 11.1 - 14.9 % [facility] ([place]) RDW SD 39.6 35.7 - 48.1 fL [facility] ([place]) NRBC abs 0.02(H) 0.00 - 0.01 K/cumm [facility] ([facility]) Blood 06/04/2024 7:21 PM COURTROOM DEPUTY OR CALENDAR CLERK 06/04/2024 7:28 PM COURTROOM DEPUTY OR CALENDAR CLERK Jill Rogers MD LAB BLOOD ORDERABLE S Final Result [facility] ([facility]) [address] [facility] [place] [place] [place] [address] * ABO/Rh (06/04/2024 7:21 PM COURTROOM DEPUTY OR CALENDAR CLERK) ABO/Rh O Positive Blood 06/04/2024 7:21 PM COURTROOM DEPUTY OR CALENDAR CLERK 06/04/2024 7:27 PM COURTROOM DEPUTY OR CALENDAR CLERK Narrative [facility] ([facility]) - 06/04/2024 8:52 PM COURTROOM DEPUTY OR CALENDAR CLERK Has the patient had Daratumumab or Isatuximab in the past 6 months?->Unknown Jill Rogers MD LAB BLOOD BANK TEST ORDERABLES Final Result [facility] ([facility]) 1 [facility] [place] [employer] [place] [address] * Antibody screen (06/04/2024 7:21 PM COURTROOM DEPUTY OR CALENDAR CLERK) Patricia, indirect, Gel Interpretation Negative ABSC Blood 06/04/2024 7:21 PM COURTROOM DEPUTY OR CALENDAR CLERK 06/04/2024 7:27 PM COURTROOM DEPUTY OR CALENDAR CLERK Narrative [facility] ([facility]) - 06/04/2024 8:52 PM COURTROOM DEPUTY OR CALENDAR CLERK Has the patient had Daratumumab or Isatuximab in the past 6 months?->Unknown Jill Rogers MD LAB BLOOD BANK TEST ORDERABLES Final Result Performing Organization Address City/[facility]/ZIP Co de Phone Number [facility] ([place]) 1 [facility] [place] [address] * hCG, blood, quantitative (06/04/2024 7:21 PM COURTROOM DEPUTY OR CALENDAR CLERK) hCG, quant <5.0 0.0 - 5.0 IUnits/L Comment: Interpretive Data Male: < 5 IU/L Non- premenopausal Female: <5 IU/L The Michelle hCG Beta Quant assay procedure was used. Results from different manufacturers or methods may not be comparable. Serial testing should be performed using the same method. Interpretive Data was last revised on 2023 Blood 06/04/2024 7:21 PM COURTROOM DEPUTY OR CALENDAR CLERK 06/04/2024 7:27 PM COURTROOM DEPUTY OR CALENDAR CLERK Jill Rogers MD LAB BLOOD ORDERABLE S Final Result Performing Organization Address City/[facility]/ZIP Co de Phone Number [facility] ([place]) 1 [facility] [place] [address] * (ABNORMAL) Comprehensive metabolic panel (06/04/2024 7:21 PM COURTROOM DEPUTY OR CALENDAR CLERK) Sodium 141 135 - 145 mmol/L Potassium, pl 3.1(L) 3.3 - 4.9 mmol/L [facility] ([facility]) Chloride 102 97 - 110 mmol/L [facility] ([facility]) CO2 25 22 - 32 mmol/L [facility] ([facility]) Anion gap 14 2 - 15 mmol/L [facility] ([place]) BUN 4(L) 6 - 25 mg/dL [facility] ([place]) Creatinine 0.64 0.60 - 1.10 mg/dL [facility] ([place]) Glucose 98 70 - 199 mg/dL [facility] ([facility]) Comment: Interpretive Data Fasting glucose >/= 126 mg/dl is diagnostic for diabetes. Fasting is defined as no caloric intake for at least 8 hours. Fasting glucose between 100 mg/dl to 125 mg/dl is diagnostic of prediabetes. In a patient with classic symptoms of hyperglycemia or hyperglycemic crisis, a random glucose >/= 200 mg/dl is diagnostic for diabetes. In the absence of unequivocal hyperglycemia, results should be confirmed by repeat testing. The classification and Diagnosis of Diabetes Diabetes Care 2021; 46: S19-S40. Current interpretive data was last revised 2022. Calcium 9.0 8.5 - 10.3 mg/dL [facility] ([place]) Bilirubin, total 0.3 0.1 - 1.2 mg/dL [facility] ([place]) Protein, pl 6.8 6.5 - 8.5 g/dL [facility] ([place]) Albumin 4.0 3.5 - 5.0 g/dL [facility] ([place]) Alk phos 96 40 - 130 Units/L [facility] ([place]) ALT 6(L) 7 - 45 Units/L [facility] ([place]) AST 9(L) 10 - 45 Units/L [facility] ([place]) Blood 06/04/2024 7:21 PM COURTROOM DEPUTY OR CALENDAR CLERK 06/04/2024 7:28 PM COURTROOM DEPUTY OR CALENDAR CLERK Jill Rogers MD LAB BLOOD ORDERABLE S Final Result [facility] ([place]) [address] [facility] [place] [address] * Hepatitis C antibody (11/10/2021 4:34 PM CDT) Pathologist [facility] Hep C Ab Nonreactive Nonreactive [facility] Comment:Antibodies to HCV no t detected. Does NOT exclude the possibility of recent exposure to HCV. Blood 11/10/2021 4:34 PM CDT 11/10/2021 4:58 PM CDT Dillon Grewal MD LAB MICRO BIOLOGY - GENERAL ORDERABLES Edited Result - Final [facility] Department [place] [address] from Last 3 Months or Most Recently Relevant to Health Maintenance Insurance [facility] [id number] Advance Directives For more information, please contact: [phone] * Full Code (Latest Code Status on File) Date Activated Date Inactivated Comments 06/04/2024 10:01 PM 06/07/2024 5:51 PM * Full Code Date Activated Date Inactivated Comments 12/22/2023 2:41 PM 12/22/2023 11:04 PM * Full Code Date Activated Date Inactivated Comments 12/22/2023 3:36 AM 12/22/2023 2:41 PM * Full Code Date Activated Date Inactivated Comments 11/16/2021 9:53 AM 11/18/2021 9:18 PM * Full Code Date Activated Date Inactivated Comments 11/15/2021 9:40 AM 11/16/2021 9:53 AM Full CPR in case of cardiopulmonary arrest Care Teams Mutual Fund Manager Relationship Specialty Start Date End Date No, Physician PCP - General 06/04/24 Costa Keen MD [address] [place] [address] [address] Consulting Physician Gastroenterology 12/22/23
--- OUTSIDE RECORDS SUMMARY | 2024-08-16 11:01 | XMS_ITS | Referral Summary ---
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 Department [place] [address] * (ABNORMAL) Comprehensive metabolic panel (06/05/2024 6:43 AM PRODUCTION MACHINE COMPUTER OPERATOR) Pathologist [facility] Sodium 139 135 - 145 mmol/L Potassium, [...] (SHY) AST 12 10 - 45 Units/L [facility] (SHY) Blood 06/05/2024 6:43 AM PRODUCTION MACHINE COMPUTER OPERATOR 06/05/2024 7:06 AM PRODUCTION MACHINE COMPUTER OPERATOR us Jill Rogers MD LAB BLOOD ORDERABLE S Final Result [facility] (SHY) 1 [facility] Department [place] [address] * [place] CRITICAL CARE ILL/INJURED PATIENT INIT 30-74 MIN (06/04/2024 10:03 PM PRODUCTION MACHINE COMPUTER OPERATOR) Narrative Jill oRgers MD - 06/04/2024 10:03 PM PRODUCTION MACHINE COMPUTER OPERATOR Jill Rogers MD 06/04/2024 10:07 PM Critical [...] spent time documenting in the medical record. us Jill Rogers MD IN CLINIC/BEDSIDE O RDERABLES Final Result * CTA Abdomen Pelvis (06/04/2024 8:45 PM PRODUCTION MACHINE COMPUTER OPERATOR) Anatomical Region Laterality Modality Body N/A Computed Tomogra phy 06/04/2024 8:49 PM PRODUCTION MACHINE COMPUTER OPERATOR Narrative 06/04/2024 9:00 PM PRODUCTION MACHINE COMPUTER OPERATOR EXAM DESCRIPTION: CTA ABDOMEN PELVIS REASON FOR [...] Koffi Griffin M.D. KT: KT Report ID: [id number] Reading Location: [id number] Procedure Note Kfofi Griffin MD - 06/04/2024 EXAM DESCRIPTION: CTA [...] Electronically signed by Koffi Griffin M.D. KT: LARA Report ID: [id number] Reading Location: [place] [address] David Franco MD [facility] CT PROCEDURES Final Result * eGFR (06/04/2024 7:21 PM PRODUCTION MACHINE COMPUTER OPERATOR) eGFR >90 >=60 mL/min/1. 73 m2 Comment: [...] last reviewed 2021. Blood 06/04/2024 7:21 PM PRODUCTION MACHINE COMPUTER OPERATOR 06/04/2024 7:28 PM PRODUCTION MACHINE COMPUTER OPERATOR us Jill Rogers MD LAB BLOOD ORDERABLE S Final Result [facility] (FELT) 1 [facility] Department [place] [address] * (ABNORMAL) Differential, auto (06/04/2024 7:21 PM PRODUCTION MACHINE COMPUTER OPERATOR) Neutrophil abs 10.3(H) 1.5 - 6.5 K/cumm [...] revised on 2017. Basophil pct 0.3 % [facility] (SHY) Comment: Interpretive Data Percent cell count reference ranges are not reported, since discordance with absolute values may lead to misinterpretation of CBC data. Current Interpretive Data was last revised on 2017. Blood 06/04/2024 7:21 PM PRODUCTION MACHINE COMPUTER OPERATOR 06/04/2024 7:28 PM PRODUCTION MACHINE COMPUTER OPERATOR us Jill Rogers MD LAB BLOOD ORDERABLE S Final Result REFUGIOYOVANY ZEE (FELT) 1 [facility] Department [place] [address] * (ABNORMAL) CBC with auto differential (06/04/2024 7:21 PM PRODUCTION MACHINE COMPUTER OPERATOR) WBC 13.7(H) 3.8 - 9.9 K/cumm Hgb 8.4(L) 11.9 - 15.5 g/dL [facility] (SHY) Hct 27.5(L) 35.6 - 45.5 % [facility] (SHY) Plt 599(H) 150 - 400 K/cumm [facility] (SHY) MPV 9.3 9.1 - 12.3 fL [facility] (SHY) RBC 3.46(L) 3.90 - 5.20 M/cumm [facility] (SHY) MCV 79.5(L) 81.3 - 96.4 fL [facility] (SHY) MCH 24.3(L) 27.1 - 33.3 pg [facility] (SHY) MCHC 30.5(L) 32.3 - 35.7 g/dL [facility] (SHY) RDW CV 13.7 11.1 - 14.9 % [facility] (SHY) RDW SD 39.6 35.7 - 48.1 fL [facility] (SHY) NRBC abs 0.02(H) 0.00 - 0.01 K/cumm [facility] ([facility] Blood 06/04/2024 7:21 PM PRODUCTION MACHINE COMPUTER OPERATOR 06/04/2024 7:28 PM PRODUCTION MACHINE COMPUTER OPERATOR Jill Rogers MD LAB BLOOD ORDERABLE S Final Result NICKY ZEE (SHY) 1 [facility] [place] [place] [address] * ABO/Rh (06/04/2024 7:21 PM PRODUCTION MACHINE COMPUTER OPERATOR) ABO/Rh O Positive Blood 06/04/2024 7:21 PM PRODUCTION MACHINE COMPUTER OPERATOR 06/04/2024 7:27 PM PRODUCTION MACHINE COMPUTER OPERATOR Narrative [facility] (SHY) - 06/04/2024 8:52 PM PRODUCTION MACHINE COMPUTER OPERATOR Has the patient had Daratumumab or Isatuximab in the past 6 months?->Unknown Jill Rogers MD LAB BLOOD BANK TEST ORDERABLES Final Result NICKY ZEE (SHY) 1 [facility] [place] [address] * Antibody screen (06/04/2024 7:21 PM PRODUCTION MACHINE COMPUTER OPERATOR) Patricia, indirect, Gel Interpretation Negative ABSC Blood 06/04/2024 7:21 PM PRODUCTION MACHINE COMPUTER OPERATOR 06/04/2024 7:27 PM PRODUCTION MACHINE COMPUTER OPERATOR Narrative NICKY ZEE (SHY) - 06/04/2024 8:52 PM PRODUCTION MACHINE COMPUTER OPERATOR Has the patient had Daratumumab or Isatuximab in the past 6 months?->Unknown Jill Rogers MD LAB BLOOD BANK TEST ORDERABLES Final Result Performing Organization Address City/[facility] Co de Phone Number NICKY ZEE (SHY) 1 [place] [address] * hCG, blood, quantitative (06/04/2024 7:21 PM PRODUCTION MACHINE COMPUTER OPERATOR) Pathologist [facility] hCG, quant <5.0 0.0 - 5.0 IUnits/L Comment: Interpretive Data Male: < 5 IU/L Non- premenopausal Female: <5 IU/L The Michelle hCG Beta Quant assay procedure was used. Results from different manufacturers or methods may not be comparable. Serial testing should be performed using the same method. Interpretive Data was last revised on 2023 Blood 06/04/2024 7:21 PM PRODUCTION MACHINE COMPUTER OPERATOR 06/04/2024 7:27 PM PRODUCTION MACHINE COMPUTER OPERATOR Jill Rogers MD LAB BLOOD ORDERABLE S Final Result Performing Organization Address [facility] Co de Phone Number NICKY ZEE (SHY) 1 [place] [address] * (ABNORMAL) Comprehensive metabolic panel (06/04/2024 7:21 PM PRODUCTION MACHINE COMPUTER OPERATOR) Sodium 141 135 - 145 mmol/L Potassium, pl 3.1(L) 3.3 - 4.9 mmol/L [facility] (SHY) Chloride 102 97 - 110 mmol/L [facility] (SHY) CO2 25 22 - 32 mmol/L [facility] (SHY) Anion gap 14 2 - 15 mmol/L [facility] (SHY) BUN 4(L) 6 - 25 mg/dL [facility] (SHY) Creatinine 0.64 0.60 - 1.10 mg/dL [facility] (SHY) [...] classification and Diagnosis of Diabetes Diabetes Care 202; 46: S19-S40. Current interpretive data was last [...] [facility] (SHY) Blood 06/04/2024 7:21 PM PRODUCTION MACHINE COMPUTER OPERATOR 06/04/2024 7:28 PM PRODUCTION MACHINE COMPUTER OPERATOR us Jill Rogers MD LAB BLOOD ORDERABLE S Final Result [facility] (SHY) 1 [facility] Department [place] [address] * Hepatitis C antibody (11/10/2021 4:34 PM CDT) Pathologist [facility] Hep C Ab Nonreactive Nonreactive [facility] Comment:Antibodies to HCV no t detected. Does NOT exclude the possibility of recent exposure to HCV. Blood 11/10/2021 4:34 PM CDT 11/10/2021 4:58 PM CDT Dillon Grewal MD LAB MICRO BIOLOGY - GENERAL ORDERABLES Edited Result - Final NICKY FOSTER [facility] Department [place] [address] from Last 3 Months or Most Recently Relevant to Health Maintenance Insurance [facility] [employer] [facility] [place] [facility] Advance Directives For more information, please contact: [phone] * Full Code (Latest Code Status on [...] in case of cardiopulmonary arrest Care Teams Healthcare Advisory Services Manager Relationship Specialty Start Date End Date No, Physician PCP - General 06/04/24 Costa Keen MD [address] [place] [address] [place] [address] Consulting Physician Gastroenterology 12/22/23
--- OUTSIDE RECORDS SUMMARY | 2024-08-16 11:01 | XMS_ITS | Encounter Summary ---
Author Organization [facility] Healthcare Address [address] [place] [address] Care Team Providers Care Radio Communications Superintendent Name Role Phone Jayson Mendiola NP Primary Care Provider [phone] Sawyer Azar DO Primary Care Provider [phone] Costa Keen MD Unavailable [phone] No, Physician Primary Care Provider [phone] Encounter Details Date Type Department Care Team (Late st Contact Info) Description 11/13/[address] [phone] Hyacinth Correa RN Social History Tobacco Use Types Packs/Day Years Used Date Smoking Tobacco: Never Smokeless Tobacco: Never AUDIT-C Answer Date Recorded Q1: How often do you have a drink containing alcohol? Never 11/15/2021 Q2: How many drinks containi ng alcohol do you have on a typical day when you are drinking? Patient does not drink Q3: How often do you have si x or more drinks on one occasion? Never 11/15/2021 Comments Yes Sex and Gender Information Value Date Recorded Sex Assigned at Not on file Legal Sex Female 7:19 PM BEAUTY ADVISOR Gender Identity Not on file Sexual Orientation Not on file documented as of this encounter Functional Status * Audit-C Score Answer Date of Assessment Author 0 11/15/2021 9:34 AM Jorden Butts RN * Question Answer Date of Assessment Author Q1: How often do you have a drink containing alcohol? Never 11/15/2021 9:34 AM JENNAT Edith Griffin RN Q2: How many drinks containing alcohol do you have on a typical day when you are drinking? Patient does not drink 11/15/2021 9:34 AM JENNAT Edith Griffin RN Q3: How often do you have six or more drinks on one occasion? Never 11/15/2021 9:34 AM JENNAT Edith Griffin RN documented as of this encounter Plan of Treatment Not on file documented as of this encounter Visit Diagnoses Not on filedocumented in this encounter Additional Health Concerns Infection Onset Date Last Indicated Resolved Time COVID19 Comment:Added from the Screening question BPA, identifying patients that tested positive for COVID in the last 14 days and the result is from a facility outside [facility] . 11/10/2021 11/10/2021 11/28/2021 3:05 AM CDT C. difficile suspected 04/18/2024 04/18/202404/18 8:32 PM BEAUTY ADVISOR documented as of this encounter Care Teams Radio Communications Superintendent Relationship Specialty Start Date End Date Jayson Mendiola NP [address] [place] [address] PCP - General 10/25/20 12/21/23 Sawyer Azar DO [address] [place] [address] PCP - General Family Practice 12/22/23 06/03/24 No, Physician PCP - General 06/04/24 Costa Keen MD [address] [place] [address] [address] [address] [place] [address] Consulting Physician Gastroenterology 12/22/23 documented as of this encounter
[2024-08-16 11:04] LABS: EDCOVIDSCREEN Negative (Negative); EDINFLUASCREEN Negative (Negative); EDINFLUBSCREEN Negative (Negative)
== END 2024-08-16 11:01 | disposition home or self-care (01) ==
PROVIDERS: Emergency Provider Nurse Practitioner
DX: H66.92 Otitis media, unspecified, left ear (principal); J06.9 Acute upper respiratory infection, unspecified; Z20.822 Contact with and (suspected) exposure to COVID-19
CPT/HCPCS: 87081; 87426; 87804; 87880; 99203; G0463

== ENCOUNTER 2025-03-04 09:07 | Emergency (ER) | payer OTHER, SELFPAY ==
[2025-03-04 09:18] VITALS: BP 122/73; PULSE 88; RESP 20; TEMP 36.9; O2SAT 100
--- OUTSIDE RECORDS SUMMARY | 2025-03-04 09:44 | XMS_ITS | Encounter Summary ---
Author Organization [facility] Healthcare Address [address] [place] [address] Care Team Providers Care Medical Dir Name Role Phone Jayson Mendiola NP Primary Care Provider [phone] Sawyer Azar DO Primary Care Provider [phone] Costa Keen MD Unavailable [phone] No, Physician Primary Care Provider [phone] Unknown, Notinfile Primary Care Provider Unavail able Encounter Details Date Type Department Care Team (Late st Contact Info) Description 11/13/[address] [phone] Hyacinth Correa RN Social History Tobacco Use [...] on file Legal Sex Female 7:[address]ICE Gender Identity Not on file Sexual Orientation Not on file documented as of this encounter Functional Status * AUDIT-C Score Answer Date of Assessment Author 0 11/15/2021 9:34 AM CDT Jorden Griffin RN * Question Answer Date of Assessment Author Q1: How often do you have a drink containing alcohol? Never 11/15/2021 9:34 AM CDT Edith Griffin, HERBERT Q2: How many drinks containing alcohol do you have on a typical day when you are drinking? Patient does not drink 11/15/2021 9:34 AM CDT Edith Griffin, HERBERT Q3: How often do you have six or more drinks on one occasion? Never 11/15/2021 9:34 AM CDT Edith Griffin RN documented as of this encounter Plan of Treatment Upcoming Encounters Date Type Department Care Team (Late st Contact Info) Description 08/27/2025 10:00 AM CDT Hospital Encounter [address] [address] Costa Keen MD [address] [facility] [address] [address] [place] [address] 08/27/2025 10:00 AM CDT - 08/27/2025 10:30 AM CDT Surgery [address] [address] Costa Keen MD [address] [facility] [address] [place] [address] [place] [address] COLONOSCOPY Scheduled Procedures Name Priority Associated Diagnoses Date/Ti me COLONOSCOPY Ulcerative colitis with complication, unspecified location (HCC) 08/27/2025 10:00 AM CDT documented as of this encounter Visit Diagnoses Not on filedocumented in this encounter Additional Health Concerns Infection Onset Date Last Indicated Resolved Time COVID19 Comment:Added from the Screening question BPA, identifying patients that tested positive for COVID in the last 14 days and the result is from a facility outside [facility] . 11/10/2021 11/10/2021 11/28/2021 3:05 AM CDT C. difficile suspected 04/18/2024 04/18/202404/18 8:[address] JUSTICE C. difficile suspected 11/09/2024 11/09/202411/09 11:42 PM CDT C. difficile suspected 11/20/2024 11/20/202411/20 1:35 PM CDT C. difficile suspected 12/01/2024 12/01/202412/01 7:39 AM CDT documented as of this encounter Care Teams Medical Dir Relationship Specialty Start Date End Date Jayson Mendiola NP [address] [facility] [address] [place] [address] PCP - General 10/25/20 12/21/23 Sawyer Azar DO [address] [place] [address] PCP - General Family Practice 12/22/23 06/03/24 No, Physician PCP - General 06/04/24 11/28/24 Unknown, Notinfile PCP - General 11/29/24 Costa Keen MD [address] [place] [address] [address] Consulting Physician Gastroenterology 12/22/23 documented as of this encounter
--- OUTSIDE RECORDS SUMMARY | 2025-03-04 09:44 | XMS_ITS | Clinical Summary ---
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 REFUGIOYOVANY ZEE ([place]) 1 [facility] Department [place] [address] * TB test, quantiferon gold (12/04/2024 3:52 AM CDT) [facility] Quantiferon TB Gold Negative Negative [facility] Comment: No interferon-gamma response to M. [...] Interferon-gamma level <0.35 IU/mL. TB-Nil 0.00 IUnits/mL NICKY ZEE (SHY) TB2-Nil 0.00 IUnits/mL [facility] (SHY) Mitogen-Nil 0.87 IUnits/mL [facility] (SHY) NIL 0.01 IUnits/mL [facility] (SHY) Comment: Test Performed by: [facility] [address] [place] [address] Meeting Coordinator: Yany Gee Ph.D.; CLIA# [id number] Blood 12/04/2024 3:52 AM CDT 12/04/2024 4:14 AM CDT Marsha FERRARA LAB BLOOD ORDERABLES Fin al Result Performing Organization Address [facility] Co de Phone Number NICKY ZEE ([place]) 1 [place] [address] [facility] * HIV 1/2 Antibody plus p24 Antigen Blood (12/04/2024 3:52 AM CDT) Pathologist [facility] HIV 1/2 ab + p24 ag Nonreactive Nonreactive Comment: Nonreactive for HIV-1 antigen and HIV-1/HIV-2 antibodies. No laboratory evidence of HIV infection. If acute HIV infection is suspected, consider testing for HIV-1 RNA. Testing performed by: [facility], [address] [place] [address]., [id number] Blood 12/04/2024 3:52 AM CDT 12/04/2024 9:16 AM CDT Marsha FERRARA LAB MICROBIOLOGY - GENER AL ORDERABLES Final Result Performing Organization Address [facility]/ZIP Co de Phone Number NICKY ZEE (SHY) 1 [facility] [place] [address] * (ABNORMAL) CBC with auto differential (12/04/2024 3:52 AM CDT) [facility] WBC 6.03 3.80 - 9.90 K/cumm Hgb 8.2(L) 11.9 - 15.5 g/dL [facility] (SHY) Hct 27.0(L) 35.6 - 45.5 % [facility] (SHY) Plt 434(H) 150 - 400 K/cumm [facility] (SHY) MPV 9.9 9.1 - 12.3 fL [facility] ([facility]Y) RBC 3.54(L) 3.90 - 5.20 M/cumm [facility] (SHY) MCV 76.3(L) 81.3 - 96.4 fL [facility] (SHY) MCH 23.2(L) 27.1 - 33.3 pg [facility] (SHY) MCHC 30.4(L) 32.3 - 35.7 g/dL [facility] (SHY) RDW CV 20.9(H) 11.1 - 14.9 % [facility] ([place]Y) RDW SD 57.0(H) 35.7 - 48.1 fL [facility] (SHY) NRBC abs 0.00 0.00 - 0.01 K/cumm [facility] (SHY) Blood 12/04/2024 3:52 AM CDT 12/04/2024 4:14 AM CDT us Kevon Moffett MD LAB BLOOD ORDERABLES Final Resu lt NICKY ZEE (SHY) 1 [facility] Department [place] [address] * Hepatitis panel, acute Blood (12/04/2024 3:52 AM CDT) Hep A IgM Nonreactive Nonreactive Comment: Interpretive Data: If Hep A IgM Ab is reported as Equivocal, a new sample should be drawn in two weeks for testing. Current interpretive data was last revised on 19. Testing performed by: [facility], [address] [place] [address], [place]., [address] Hep B core IgM Nonreactive Nonreactive [place] [facility] (SHY) Comment: Interpretive Data If HepB Core IgM Ab is reported as Equivocal, a new sample should be drawn in two weeks for testing. Current interpretive data was last revised on 19. Testing performed by: [address] [place]., [address] Hep C Ab Nonreactive Nonreactive [facility] (SHY) Comment: Interpretive Data Nonreactive: Antibodies to HCV not detected. Does NOT exclude the possibility of recent exposure to HCV. Equivocal: Equivocal for HCV antibodies. Supplemental molecular testing will be automatically performed to determine infection status in accordance with current CDC screening recommendations. Reactive: Positive for HCV antibodies. This may represent current or past HCV infection. Supplemental molecular testing will be automatically performed to determine current infection status in accordance with current CDC screening recommendations. Interpretive data was last revised on 2019. Testing performed by: [facility], [address] [place] [address]., [id number] HepBsAg Nonreactive Nonreactive [facility] (SHY) Comment:Testing performed by : [facility], [address] [place] [address]., [id number] Blood 12/04/2024 3:52 AM CDT 12/04/2024 9:17 AM CDT Marsha FERRARA LAB MICROBIOLOGY - [facility] AL ORDERABLES Final Result [facility] (SHY) 1 [facility] Department of Laboratories [place], [place] [id number] * (ABNORMAL) Comprehensive metabolic panel (12/04/2024 3:52 AM CDT) Sodium 138 135 - 145 mmol/L Potassium, pl 4.0 3.3 - 4.9 mmol/L [facility] (SHY) Chloride 103 97 - 110 mmol/L [facility]) CO2 25 22 - 32 mmol/L [facility] ([facility] Anion gap 11 2 - 15 mmol/L [facility] BUN 4(L) 6 - 25 mg/dL [facility] (SHY) Creatinine 0.52(L) 0.60 - 1.10 mg/dL [facility] Glucose 112 70 - 199 mg/dL [facility] (SHY) Comment: Interpretive Data [...] interpretive data was last revised 2022. Calcium 8.5 8.5 - 10.3 mg/dL [facility] (SHY) Bilirubin, total 0.2 0.1 - 1.2 mg/dL [facility] (SHY) Protein, pl 5.3(L) 6.5 - 8.5 g/dL [facility] (SHY) Albumin 3.1(L) 3.5 - 5.0 g/dL [facility] (SHY) Alk phos 56 40 - 130 Units/L [facility] (SHY) ALT 9 7 - 45 Units/L [facility] (SHY) AST 7(L) 10 - 45 Units/L [facility] (SHY) Blood 12/04/2024 3:52 AM CDT 12/04/2024 4:14 AM CDT us Kevon Moffett MD LAB BLOOD ORDERABLES Final Resu lt NICKY ZEE (SHY) 1 [facility] Department [place] [address] * XR Abdomen 2 Views W Chest 1 View (12/03/2024 2:45 PM CDT) Anatomical Region Laterality Modality Body, Abdomen N/A Computed Radiogr aphy 12/03/2024 11:1 1 PM CDT Narrative 12/03/2024 11:12 PM CDT EXAM DESCRIPTION: XR ABDOMEN 2 VIEWS W CHEST 1 VIEW REASON FOR STUDY: biologic screening biologic screening. Pt states her ulcerative colitis Is flaring up. TECHNIQUE: Single radiographic view of the chest with four views of the abdomen. COMPARISON: 06/05/2024 FINDINGS: LUNGS: No focal opacity, pleural effusion, or pneumothorax. HEART/MEDIASTINUM: Cardiac silhouette normal in size. Mediastinal and hilar contours appear normal. FREE AIR: None. BOWEL: Moderate diffuse gaseous distention of the colon. SOFT TISSUES: No abnormal calcifications. LINES/TUBES: None. BONES: Compression screw and intramedullary meche right hip. IMPRESSION: 1. No acute cardiopulmonary abnormality. 2. Moderate diffuse gaseous distention of the colon. THIS IS AN ELECTRONICALLY VERIFIED FINAL REPORT 12/03/2024 11:12 PM - Electronically signed by Koffi Griffin M.D. KT: LARA Report ID: [id number] Reading Location: [id number] Procedure Note Koffi Griffin MD - 12/03/2024 EXAM DESCRIPTION: XR ABDOMEN 2 VIEWS W CHEST 1 VIEW REASON FOR STUDY: biologic screening biologic screening. Pt states her ulcerative colitis Is flaring up. TECHNIQUE: Single radiographic view of the chest with four views of the abdomen. COMPARISON: 06/05/2024 FINDINGS: LUNGS: No focal opacity, pleural effusion, or pneumothorax. HEART/MEDIASTINUM: Cardiac silhouette normal in size. Mediastinal andhilar contours appear normal. FREE AIR: None. BOWEL: Moderate diffuse gaseous distention of the colon. SOFT TISSUES: No abnormal calcifications. LINES/TUBES: None. BONES: Compression screw and intramedullary meche right hip. IMPRESSION: 1. No acute cardiopulmonary abnormality. 2. Moderate diffuse gaseous distention of the colon. THIS IS AN ELECTRONICALLY VERIFIED FINAL REPORT 12/03/2024 11:12 PM - Electronically signed by Koffi Griffin M.D. KT: LARA Report ID: [id number] Reading Location: [id number] Marsha FERRARA IMG XR PROCEDURES Final Result * eGFR (12/03/2024 3:46 AM CDT) eGFR >90 >=60 mL/min/1. 73 m2 Comment: [...] interpretive data was last reviewed 2021. Blood 12/03/2024 3:46 AM CDT 12/03/2024 5:06 AM CDT us Kevon Moffett MD LAB BLOOD ORDERABLES Final Resu lt [facility] ([place]) 1 [facility] Department [place] [address] * (ABNORMAL) Differential, auto (12/03/2024 3:46 AM CDT) Neutrophil abs 4.16 1.50 - 6.50 K/cumm Imm gran abs 0.11(H) 0.00 - 0.10 K/cumm [facility] (SHY) Lymphocyte abs 0.75(L) 0.80 - 3.30 K/cumm [facility] (SHY) Monocyte abs 0.50 0.20 - 0.80 K/cumm [facility] (SHY) Eosinophil abs 0.00 0.00 - 0.50 K/cumm [facility] (SHY) Basophil abs 0.01 0.00 - 0.10 K/cumm [facility] (SHY) Neutrophil pct 75.2 % [facility] (SHY) Comment: Interpretive Data Percent cell count reference ranges are not reported, since discordance with absolute values may lead to misinterpretation of CBC data. Current Interpretive Data was last revised on 2017. Imm gran pct 2.0 % [facility] (SHY) Comment: Interpretive Data Percent cell count reference ranges are not reported, since discordance with absolute values may lead to misinterpretation of CBC data. Current Interpretive Data was last revised on 2017. Lymphocyte pct 13.6 % [facility] (SHY) Comment: Interpretive Data Percent cell count reference ranges are not reported, since discordance with absolute values may lead to misinterpretation of CBC data. Current Interpretive Data was last revised on 2017. Monocyte pct 9.0 % [facility] (SHY) Comment: Interpretive Data Percent cell count reference ranges are not reported, since discordance with absolute values may lead to misinterpretation of CBC data. Current Interpretive Data was last revised on 2017. Eosinophil pct 0.0 % [facility] (SHY) Comment: Interpretive Data Percent cell count reference ranges are not reported, since discordance with absolute values may lead to misinterpretation of CBC data. Current Interpretive Data was last revised on 2017. Basophil pct 0.2 % [facility] (SHY) Comment: Interpretive Data Percent cell count reference ranges are not reported, since discordance with absolute values may lead to misinterpretation of CBC data. Current Interpretive Data was last revised on 2017. Blood 12/03/2024 3:46 AM CDT 12/03/2024 5:06 AM CDT us Kevon Moffett MD LAB BLOOD ORDERABLES Final Resu lt NICKY ZEE ([place]) 1 [facility] Department [place] [address] * (ABNORMAL) CBC with auto differential (12/03/2024 3:46 AM CDT) WBC 5.53 3.80 - 9.90 K/cumm Hgb 8.3(L) 11.9 - 15.5 g/dL [facility] (SHY) Hct 28.1(L) 35.6 - 45.5 % NICKY ZEE (SHY) Plt 442(H) 150 - 400 K/cumm NICKY ZEE (SHY) MPV 10.0 9.1 - 12.3 fL [facility] (SHY) RBC 3.63(L) 3.90 - 5.20 M/cumm [facility] (SHY) MCV 77.4(L) 81.3 - 96.4 fL [facility] (SHY) MCH 22.9(L) 27.1 - 33.3 pg [facility] (SHY) MCHC 29.5(L) 32.3 - 35.7 g/dL [facility] (SHY) RDW CV 20.9(H) 11.1 - 14.9 % [facility] ([place]Y) RDW SD 57.7(H) 35.7 - 48.1 fL [facility] (SHY) NRBC abs 0.00 0.00 - 0.01 K/cumm [facility] Blood 12/03/2024 3:46 AM CDT 12/03/2024 5:06 AM CDT us Kevon Moffett MD LAB BLOOD ORDERABLES Final Resu lt [facility] (SHY) 1 [facility] Department of Laboratories [place] [id number] * (ABNORMAL) Comprehensive metabolic panel (12/03/2024 3:46 AM CDT) Sodium 140 135 - 145 mmol/L Potassium, pl 4.2 3.3 - 4.9 mmol/L [facility] Chloride 103 97 - 110 mmol/L [facility] (SHY) CO2 20(L) 22 - 32 mmol/L [facility] (SHY) Anion gap 17(H) 2 - 15 mmol/L [facility] (SHY) BUN 4(L) 6 - 25 mg/dL [facility] (SHY) Creatinine 0.50(L) 0.60 - 1.10 mg/dL [facility] (SHY) Glucose 110 70 - 199 mg/dL [facility] (SHY) [...] interpretive data was last revised 2022. Calcium 8.8 8.5 - 10.3 mg/dL [facility] (SHY) Bilirubin, total 0.2 0.1 - 1.2 mg/dL [facility] (SHY) Protein, pl 5.5(L) 6.5 - 8.5 g/dL [facility] (SHY) Albumin 3.1(L) 3.5 - 5.0 g/dL [facility] (SHY) Alk phos 58 40 - 130 Units/L [facility] (SHY) ALT 8 7 - 45 Units/L [facility] (SHY) AST 8(L) 10 - 45 Units/L [facility] (SHY) Blood 12/03/2024 3:46 AM CDT 12/03/2024 5:06 AM CDT us Kevon Moffett MD LAB BLOOD ORDERABLES Final Resu lt NICKY ZEE (SHY) 1 [facility] Department [place] [address] * eGFR (12/02/2024 9:19 AM CDT) eGFR >90 >=60 mL/min/1. 73 m2 Comment: [...] interpretive data was last reviewed 2021. Blood 12/02/2024 9:19 AM CDT 12/02/2024 9:44 AM CDT us Kevon Moffett MD LAB BLOOD ORDERABLES Final Resu lt [facility] ([place]) 1 [facility] Department [place] [address] * Differential, auto (12/02/2024 9:19 AM CDT) Neutrophil abs 3.61 1.50 - 6.50 K/cumm Imm gran abs 0.08 0.00 - 0.10 K/cumm [facility] (SHY) Lymphocyte abs 0.84 0.80 - 3.30 K/cumm [facility] (SHY) Monocyte abs 0.49 0.20 - 0.80 K/cumm [facility] ([place]Y) Eosinophil abs 0.00 0.00 - 0.50 K/cumm [facility] (SHY) Basophil abs 0.01 0.00 - 0.10 K/cumm [facility] (SHY) Neutrophil pct 71.8 % [facility] ([facility]) Comment: Interpretive Data Percent cell count reference ranges are not reported, since discordance with absolute values may lead to misinterpretation of CBC data. Current Interpretive Data was last revised on 2017. Imm gran pct 1.6 % [facility] (SHY) Comment: Interpretive Data Percent cell count reference ranges are not reported, since discordance with absolute values may lead to misinterpretation of CBC data. Current Interpretive Data was last revised on 2017. Lymphocyte pct 16.7 % [facility] (SHY) Comment: Interpretive Data Percent cell count reference ranges are not reported, since discordance with absolute values may lead to misinterpretation of CBC data. Current Interpretive Data was last revised on 2017. Monocyte pct 9.7 % [facility] (SHY) Comment: Interpretive Data Percent cell count reference ranges are not reported, since discordance with absolute values may lead to misinterpretation of CBC data. Current Interpretive Data was last revised on 2017. Eosinophil pct 0.0 % [facility] (SHY) Comment: Interpretive [...] Data was last revised on 2017. Blood 12/02/2024 9:19 AM CDT 12/02/2024 9:44 AM CDT us Kevon Moffett MD LAB BLOOD ORDERABLES Final Resu lt [facility] (SHY) 1 [facility] Department of Laboratories [place], [place] [id number] * (ABNORMAL) CBC with auto differential (12/02/2024 9:19 AM CDT) WBC 5.03 3.80 - 9.90 K/cumm Hgb 8.7(L) 11.9 - 15.5 g/dL [facility] (SHY) Hct 29.5(L) 35.6 - 45.5 % [facility] (SHY) Plt 440(H) 150 - 400 K/cumm [facility] (SHY) MPV 10.1 9.1 - 12.3 fL [facility] ([facility]Y) RBC 3.77(L) 3.90 - 5.20 M/cumm [facility] (SHY) MCV 78.2(L) 81.3 - 96.4 fL [facility] (SHY) MCH 23.1(L) 27.1 - 33.3 pg [facility] (SHY) MCHC 29.5(L) 32.3 - 35.7 g/dL [facility] (SHY) RDW CV 20.9(H) 11.1 - 14.9 % [facility] (SHY) RDW SD 57.9(H) 35.7 - 48.1 fL [facility] (SHY) NRBC abs 0.00 0.00 - 0.01 K/cumm [facility] Blood 12/02/2024 9:19 AM CDT 12/02/2024 9:44 AM CDT us Kevon Moffett MD LAB BLOOD ORDERABLES Final Resu lt [facility] (SHY) 1 [facility] Department [place] [address] * (ABNORMAL) Comprehensive metabolic panel (12/02/2024 9:19 AM CDT) Sodium 137 135 - 145 mmol/L Potassium, pl 3.9 3.3 - 4.9 mmol/L [facility] (SHY) Chloride 101 97 - 110 mmol/L [facility] ([facility]) CO2 22 22 - 32 mmol/L [facility] (SHY) Anion gap 15 2 - 15 mmol/L [facility] (SHY) BUN 3(L) 6 - 25 mg/dL [facility] (SHY) Creatinine 0.47(L) 0.60 - 1.10 mg/dL [facility] (SHY) Glucose 100 70 - 199 mg/dL [facility] (SHY) [...] interpretive data was last revised 2022. Calcium 8.8 8.5 - 10.3 mg/dL [facility] (SHY) Bilirubin, total 0.2 0.1 - 1.2 mg/dL [facility] (SHY) Protein, pl 5.8(L) 6.5 - 8.5 g/dL [facility] (SHY) Albumin 3.2(L) 3.5 - 5.0 g/dL [facility] (SHY) Alk phos 61 40 - 130 Units/L [facility] (SHY) ALT 7 7 - 45 Units/L [facility] (SHY) AST 7(L) 10 - 45 Units/L [facility] (SHY) Blood 12/02/2024 9:19 AM CDT 12/02/2024 9:44 AM CDT us Kevon Moffett MD LAB BLOOD ORDERABLES Final Resu lt [facility] (SHY) 1 [facility] Department [place] [address] from Last 3 Months Insurance IDID [facility] Advance Directives For more information, please contact: [phone] * Full Code (Latest Code Status on File) Date Activated Date Inactivated Comments 12/24/2024 8:24 AM 12/24/2024 3:36 PM * Full Code Date Activated Date Inactivated Comments 12/24/2024 8:23 AM 12/24/2024 8:24 AM * Full Code Date Activated Date Inactivated Comments 12/01/2024 12:33 AM 12/04/2024 9:43 PM * Full Code Date Activated Date Inactivated Comments 11/20/2024 11:36 AM 11/27/2024 10:06 PM * Full Code Date Activated Date Inactivated Comments 11/10/2024 11:34 AM 11/11/2024 4:24 PM Care Teams [employer] Relationship Specialty Start Date End Date Unknown, Notinfile PCP - General 11/29/24 Cotsa Keen MD [address] [place] [address] [address] Consulting Physician Gastroenterology 12/22/23
--- NOTE | 2025-03-04 10:04 | ED.SKABFB ---
HPI - Skin/Abscess/Foreign Bdy General Chief complaint: Skin/Abscess/Foreign Body Stated complaint: right side back of ankle swollen Time Seen by Provider: 03/04/25 09:56 Source: patient and RN notes reviewed Mode of arrival: ambulatory Limitations: no limitations History of Present Illness HPI narrative: Patient presents today complaining of an insect bite to the right posterior heel 3 days ago. Pain appeared last night and is worse with weight-bearing. Denies numbness or tingling. She currently rates her pain 6/10. She has tried ice without much improvement. Patient's history of ulcerative colitis, currently on 5 mg of prednisone daily. Related Data Home Medications ?Medication ?Instructions ?Recorded ?Confirmed ?Last Taken ?Type mesalamine 1,000 mg rectal RECTAL 03/04/25 Unknown History suppository mesalamine 1.2 gram tablet,delayed g PO 03/04/25 Unknown History release pantoprazole 40 mg tablet,delayed mg PO 03/04/25 Unknown History release prednisone 5 mg tablet mg 03/04/25 Unknown History Allergies Allergy/AdvReac Type Severity Reaction Status Date / Time No Known Allergies Allergy Verified 03/04/25 10:07 [facility] Past Medical History Medical History (Updated 03/04/25 @ 10:10 by Leticia Chisholm, [facility], ) Ulcerative colitis Comments At time of signature, I have reviewed and agree with nursing past medical, surgical, social and family history unless otherwise noted. Please see nursing chart for further information. There is no relevant family history pertinent to the presenting complaint Exam Narrative: GENERAL: Well-appearing, well-nourished, and in no acute distress. HEAD: Normocephalic, atraumatic. EYES: EOMI. No redness or drainage. Conjunctivae normal. ENT: Mucous membranes pink and moist. NECK: Normal AROM. CHEST: No respiratory distress. MUSCULOSKELETAL: No bony tenderness. S 6 x 4 cm area of mild erythema to the right posterior heel with tiny scab in the center suggestive of infected insect bite. No edema, fluctuance, red streaking, induration. Tender to palpation. EXTREMITIES: Normal range of motion. No edema. SKIN: Warm, dry, no rash. Capillary refill normal. Normal skin turgor. NEURO: No focal deficits. Alert and oriented x3. Gait steady. PSYCH: Normal affect. No signs of depression or anxiety. Course Course Level of Care: Express Care Visit Vital Signs Vital signs: Vital Signs Temperature 98.5 F 03/04/25 09:18 Pulse Rate 88 03/04/25 09:18 Respiratory Rate 20 03/04/25 09:18 Blood Pressure 122/73 03/04/25 09:18 Pulse Oximetry 100 03/04/25 09:18 Oxygen Delivery Room Air 03/04/25 09:18 Temperature 98.5 F 03/04/25 09:18 Pulse Rate 88 03/04/25 09:18 Respiratory Rate 20 03/04/25 09:18 Blood Pressure 122/73 03/04/25 09:18 Pulse Oximetry 100 03/04/25 09:18 Oxygen Delivery Room Air 03/04/25 09:18 Reviewed MDM - Skin/Abscess/Foreign Bdy MDM Narrative Medical decision making narrative: 24 year old female patient with history of Ulcerative Colitis, presents today complaining of an insect bite to the right posterior heel 3 days ago. Pain appeared last night and is worse with weight-bearing. Denies numbness or tingling. She currently rates her pain 6/10. She has tried ice without much improvement. Upon exam, patient has a 6x4cm area of mild erythema to the right posterior heel with tiny scab in the center, consistent with infected insect bite. No sign of abscess. Will treat with Keflex. VSS. Patient agrees with plan. Anticitipatory guidance given. Differential Diagnosis Differential diagnosis: Likely abscess of skin or subcutaneous tissue, cellulitis, insect bites and impetigo Critical Care Time Critical Care Time Critical Care Time: No Discharge Plan Discharge Clinical Impression: Infected insect bite Qualifiers: Encounter type: initial encounter Qualified Code(s): W57.XXXA - Bitten or stung by nonvenomous insect and other nonvenomous arthropods, initial encounter Patient Disposition: Home Condition: Stable Instructions: Antibiotic Form, Cellulitis (ED) Additional Instructions: Please take the Keflex as prescribed until gone. Keep the area clean and dry. Follow-up with your PCP in 3 days if symptoms are not improving, or sooner if symptoms worsen. Go to the ER immediately if you start running a fever greater than 100.3, or notice red streaking up your leg. Patient Language: Chilean Prescriptions: New cephalexin 500 mg capsule 500 mg PO Q6H 7 Days Qty: 28 0RF No Action prednisone 5 mg tablet pantoprazole 40 mg tablet,delayed release (DR/EC) PO mesalamine 1,000 mg suppository RECTAL mesalamine 1.2 gram tablet,delayed release (DR/EC) PO Follow-up/Referrals: PHYSICIAN,SOCIAL SERVICES [Primary Care Provider, Internal Medicine] Stand Alone Forms: Work/School Release IP Time of Disposition: 10:10
== END 2025-03-04 10:20 | disposition home or self-care (01) ==
PROVIDERS: Emergency Provider Nurse Practitioner
DX: S90.861A Insect bite (nonvenomous), right foot, initial encounter (principal); Z79.899 Other long term (current) drug therapy; W57.XXXA Bitten or stung by nonvenomous insect and other nonvenomous arthropods, initial encounter
CPT/HCPCS: 99213; G0463

== ENCOUNTER 2025-04-10 13:08 | Emergency (ER) | payer MEDICAID, SELFPAY ==
[2025-04-10 13:15] VITALS: BP 121/72; PULSE 94; RESP 18; TEMP 36.6; O2SAT 100
--- NOTE | 2025-04-10 13:23 | ED.NAVMDI ---
HPI - Nausea/Vomiting/Diarrhea General Chief complaint: Nausea/Vomiting/Diarrhea Stated complaint: Vomiting/Diarrhea Time Seen by Provider: 04/10/25 13:24 Source: patient, RN notes reviewed and old records reviewed Mode of arrival: ambulatory Limitations: no limitations History of Present Illness HPI Narrative: 24 year old female presents to [facility] care with complaints of having nausea and vomiting since last evening and has had 4 loose stool also with fever last evening. Patient reports that daughter had similar symptoms a few days ago and recovered in about 24 hours. Patient reported that she had fever last night with no fever today. Patient reports that she has not taken any OTC medication for her fever. Patient does have history of ulcerative colitis. MD elicited complaint: nausea, vomiting, diarrhea and other (fever last evening normal today) Pertinent past history: other (ulcerative colitis) Onset (ago): day(s) (since yesterday evening) Description of vomiting: food contents and watery Description of diarrhea: lose Associated nausea: Yes Associated abdominal pain: No Severity: moderate Treatment prior to arrival: none Related Data Home Medications ?Medication ?Instructions ?Recorded ?Confirmed ?Last Taken ?Type mesalamine 1.2 gram tablet,delayed g PO 03/04/25 Unknown History release pantoprazole 40 mg tablet,delayed mg PO 03/04/25 Unknown History release depo shot 04/10/25 Unknown History Allergies Allergy/AdvReac Type Severity Reaction Status Date / Time No Known Allergies Allergy Verified 04/10/25 13:17 Review of Systems Review of Systems: CONSTITUTIONAL:Reports fever, chills, or sweats. EYES: Denies visual changes, redness, or discharge. ENT: Denies rhinorrhea, congestion, sore throat, or otalgia. CARDIOVASCULAR: Denies chest pain, palpitations, or edema. RESPIRATORY: Denies cough or dyspnea. GASTROINTESTINAL: Denies abdominal pain, positive for nausea, vomiting, or diarrhea. GENITOURINARY: Denies dysuria or hematuria. SKIN: Denies rash or itching. MUSCULOSKELETAL: Denies back pain, joint pain, or myalgia. NEUROLOGIC: Denies headache, numbness, or weakness. PSYCHIATRIC: Denies anxiety or depression. All systems reviewed & are unremarkable except as noted in HPI and below PMFSH Past Medical History Medical History IBS (irritable bowel syndrome) Ulcerative colitis Surgical History Surgical History History of orthopedic surgery repair of fractured femur with hardware Social History Social History Smoking status: Current every day smoker Tobacco type: e-cigarettes/vaping Alcohol use details: no alcohol use Substance use: current Substance use type: marijuana Last use: occasional Living arrangements: with family Gender identity (if verbalized by the patient): Female Comments At time of signature, agree with nursing past medical, surgical, social and family history. There is no relevant family history pertinent to the presenting complaint Exam Narrative: GENERAL: Well-appearing, well-nourished, and in no acute distress. HEAD: Normocephalic, atraumatic. EYES: PERRLA and EOMI. ENT: Nares clear, no rhinorrhea or epistaxis. Mucous membranes moist.TM's normal throat pink with no swelling or enlarged tonsils NECK: Supple.no lymphadenopathy CHEST: Clear to auscultation. No respiratory distress.no cough noted SAO2 100% on room air HEART: Regular rate and rhythm. No murmur heard. Normal peripheral pulses. ABDOMEN: Soft, nontender,no McBurney point tenderness, nondistended, normal active bowel sounds.vomiting startinglst pm and diarrhea x4 today EXTREMITIES: Normal range of motion. No edema. SKIN: Warm, dry, no rash. NEURO: No focal deficits. Alert and oriented x3. Course Course Emergency Course: Patient is aware of diagnosis, understands and agrees to treatment plan.? Anticipatory guidance given.? Patient agrees to follow-up as directed and is aware of reasons to seek care at the emergency department. Portions of this record may have been created with voice recognition software Level of Care: Express Care Visit Vital Signs Vital signs: Vital Signs Temperature 36.6 C 04/10/25 13:15 Pulse Rate 94 04/10/25 13:15 Respiratory Rate 18 04/10/25 13:15 Blood Pressure 121/72 04/10/25 13:15 Pulse Oximetry 100 04/10/25 13:15 Oxygen Delivery Room Air 04/10/25 13:15 Temperature 36.6 C 04/10/25 13:15 Pulse Rate 94 04/10/25 13:15 Respiratory Rate 18 04/10/25 13:15 Blood Pressure 121/72 04/10/25 13:15 Pulse Oximetry 100 04/10/25 13:15 Oxygen Delivery Room Air 04/10/25 13:15 Reviewed MDM - Nausea/Vomiting/Diarrhea Differential Diagnosis Differential diagnosis: Likely food poisoning, gastroenteritis, dehydration and other (viral syndrome) Medical Records Attestation: I reviewed the patient's medical records. Lab Data Attestation: I reviewed the patient's lab results. Lab results narrative: Influenza A negative, Influenza B , COVID antigen negative Labs: Lab Results 04/10/25 Range/Units 13:44 POC Influenza A Ag Negative (Negative) POC Influenza B Ag Negative (Negative) POC SARS CoV-2 Ag Negative (Negative) Critical Care Time Critical Care Time Critical Care Time: No Discharge Plan Discharge Clinical Impression: Nausea, vomiting, and diarrhea, Viral syndrome Patient Disposition: Home Condition: Stable Instructions: Antibiotic Form, Viral Syndrome (ED) Additional Instructions: Clear liquids for the next 8-10 hours, then advance to a bland diet as tolerated A bland diet can consist of--BRAT diet which is bananas, rice, applesauce, and toast Avoid fried, greasy, fatty, fried foods Avoid caffeine, nicotine, and alcohol Return to your regular diet in the next 3-4 days Medication as directed for nausea and vomiting Tylenol for pain for package instruction [id number] Imodium if develop diarrhea Follow-up with her PCP if continued problems or uncontrolled pain If your symptoms persist, change or worsen significantly before you can contact your personal physician then please, without delay, go to the emergency department for further evaluation. Follow-up with PCP in 7-10 days or sooner if needed Patient Language: Yi Prescriptions: New ondansetron 4 mg tablet,disintegrating 4 mg PO Q6H PRN (Reason: nausea and vomiting) Qty: 20 0RF Rx Instructions: what ever is covered by insurance acetaminophen 500 mg capsule 500 mg PO Q6H PRN (Reason: fever or pain) Qty: 30 0RF No Action pantoprazole 40 mg tablet,delayed release (DR/EC) PO mesalamine 1.2 gram tablet,delayed release (DR/EC) PO depo shot Follow-up/Referrals: PHYSICIAN,MILLER APPRENTICE [Primary Care Provider, Internal Medicine] Stand Alone Forms: Work/School Release IP Time of Disposition: 13:51 Quality Josephine Coma Scale Eyes: Open Verbal: Oriented and Alert Motor: Follows Commands Josephine Coma Total Score: 15
[2025-04-10] MEDS: ONDANSETRON HCL ODT 4 MG TABLET PO (13:35)
[2025-04-10 13:48] LABS: EDCOVIDSCREEN Negative (Negative); EDINFLUASCREEN Negative (Negative); EDINFLUBSCREEN Negative (Negative)
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
--- OUTSIDE RECORDS SUMMARY | 2025-04-10 14:13 | XMS_ITS | Encounter Summary ---
Author Organization [facility] Healthcare Address [address] [place] [address] Care Team Providers Care Drug Safety Coordinator Name Role Phone Benny Mendiolais Rohini PAYAN Primary Care Provider [phone] Sawyer Azar DO Primary Care Provider [phone] Costa Keen MD Unavailable [phone] No, Physician Primary Care Provider [phone] Unknown, Notinfile Primary Care Provider Unavail able Encounter Details Date Type Department Care Team (Late st Contact Info) Description 11/13/2021 Telephone [facility] [address] [place] [address] Hyacinth Correa RN Social History Tobacco [...] on file Legal Sex Female 7:19 PM PATROL MAN Gender Identity Not on file Sexual Orientation Not on file documented as of this encounter Functional Status * Amaro Fall Risk Question Answer Date of Assessment Author History of Falling 0 11/16/2021 9:08 PM Maria Antonia Cisneros RN Secondary Diagnosis 15 11/16/2021 9:08 PM Maria Antonia Aranda RN Ambulatory Aids 0 11/16/2021 9:08 PM Maria Antonia Leonard RN Intravenous Therapy/Heparin/Saline Lock 20 11/16/2021 9:08 PM CDT Argentina Navarrete RN Gait/Transferring 0 11/16/2021 9:08 PM JENNAT Maria Antonia Navarrete RN Mental Status 0 11/16/2021 9:08 PM CDT Milagro seMaria Antonia RN Morse Fall Risk Score (Score >= 45 places fall precaution order) 35 11/16/2021 9:08 PM CDT Maria Antonia Navarrete RN Prior Fall Event (Autopopulated from EMR) None found 11/16/2021 9:08 PM CDT Shandra Navarrete RN * Francis Scale Question Answer Date of Assessment Author Sensory Perceptions 4 11/16/2021 9:08 PM Maria Antonia Aranda RN Moisture 4 11/16/2021 9:08 PM CDT Cristian singh, Maria Antonia Valdez RN Activity 4 11/16/2021 9:08 PM CDT Cristian singh, Maria Antonia Valdez RN Mobility 4 11/16/2021 9:08 PM CDT Cristian singh, Maria Antonia Valdez RN Nutrition 4 11/16/2021 9:08 PM CDT Cristian singh, Maria Antonia Valdez RN Friction and Shear 3 11/16/2021 9:08 PM CDT Maria Antonia Navarrete RN Francis Scale Score 23 11/16/2021 9:08 PM CDT Maria Antonia Navarrete RN * Question Answer Date of Assessment Author BP Location Right arm 11/16/2021 2:43 PM Lore Lovelace BP Method Automatic 11/16/2021 2:43 PM Lore Lovelace MAP (mmHg) 95 11/16/2021 2:43 PM Lore Lovelace * Fall Risk Interventions Question Answer Date of Assessment Author All Low Fall Interventions Applied Yes 11/16/2021 9:08 PM Maria Antonia Cisneros, HERBERT All Moderate Fall Interventions Applied No 11/16/2021 9:08 PM Maria Antonia Cisneros RN All Moderate Fall Risk Interventions EXCEPT: Fall risk sign with education;Fall risk armband;Gait belt at bedside 11/16/2021 9:08 PM Maria Antonia Cisneros RN All High Fall Risk Interventions Applied No 11/16/2021 11:55 AM Ana Mace RN All High Risk Interventions EXCEPT: Bed alarm;Chair alarm 11/16/2021 11:55 AM Ana Mace RN Reason For Exception(s) bmat green 11/17/19 9:08 PM Maria Antonia Cisneros RN Reason For Exception(s) calls appropriately 10/29 11:55 AM Ana Mace RN * B.M.A.T. - Bedside Mobility Assessment Tool for Nurses Question Answer Date of Assessment Author Is patient able to participate in the BMAT? Yes 11/16/2021 9:08 PM Shandra Cisneros RN BMAT Level Level 4 - Green 11/16/2021 9:08 PM CDT Maria Antonia Beasley, HERBERT * Question Answer Date of Assessment Author 1. Has the patient self-reported, presented with clinical signs of, or have a documented history of any of the following within the past 30 days? No 11/15/2021 8:00 AM Edith Butts RN * Is the patient being treated today because it is known or suspected that they prepared, started, ortried to end their life? Answer Date of Assessment Author No 11/15/2021 9:17 AM Jorden Butts RN * Question Answer Date of Assessment Author 2. In the past month, have you actually had any thoughts of killing yourself? No 11/15/2021 8:00 AM Edith Butts RN * 1. In the past month, have you wished you were or that you could go to sleep and not wake up? Answer Date of Assessment Author No 11/15/2021 9:17 AM Jorden Butts RN * 6. Have you ever done anything, started to do anything, or prepared to do anything to end your life? Answer Date of Assessment Author No 11/15/2021 9:17 AM Jorden Butts RN * Suicide Risk Level Answer Date of Assessment Author No risk level 11/15/2021 9:17 AM Jorden Butts RN * Self-Injurious Risk Level Answer Date of Assessment Author No risk level 11/15/2021 8:00 AM Jorden Butts RN * Pressure Injury Prevention Question Answer Date of Assessment Author Pressure Ulcer Prevention Interventions Keep skin clean and dry (Sensory Perception/Moistur e) 11/16/2021 9:08 PM JENNAT Maria Antonia Navarrete RN * AUDIT-C Score Answer Date of Assessment Author 0 11/15/2021 9:34 AM Jorden Butts RN * Alcohol Use Question Answer Date of Assessment Author Q1: How often do you have a drink containing alcohol? Never 11/15/2021 9:34 AM Edith Butts RN Q2: How many drinks containing alcohol do you have on a typical day when you are drinking? Patient does not drink 11/15/2021 9:34 AM Edith Butts RN Q3: How often do you have six or more drinks on one occasion? Never 11/15/2021 9:34 AM Edith Butts RN * Integumentary Question Answer Date of Assessment Author Integumentary (WDL) WDL 11/16/2021 9:08 PM Maria Antonia Aranda RN * Question Answer Date of Assessment Author RLE Edema +1 11/16/2021 9:08 PM Maria Antonia Yin RN LLE Edema +1 11/16/2021 9:08 PM JENNAT Maria Antonia Mederos RN Edema Right lower extremit y;Left lower extremity 11/16/2021 9:08 PM Maria Antonia Cisneros, HERBERT * Question Answer Date of Assessment Author BP Location Right arm 11/16/2021 2:43 PM CDT Lore Pompa BP Method Automatic 11/16/2021 2:43 PM CDT Lore Pompa * Fall Risk Interventions Question Answer Date of Assessment Author All Low Fall Interventions Applied Yes 11/16/2021 9:08 PM CDT Maria Antonia Navarrete RN All Moderate Fall Interventions Applied No 11/16/2021 9:08 PM CDT Maria Antonia Navarrete RN All Moderate Fall Risk Interventions EXCEPT: Fall risk sign with education;Fall risk armband;Gait belt at bedside 11/16/2021 9:08 PM CDT Maria Antonia Navarrete RN All High Fall Risk Interventions Applied No 11/16/2021 11:55 AM CDT Ana Vaca RN All High Risk Interventions EXCEPT: Bed alarm;Chair alarm 11/16/2021 11:55 AM JENNAT Ana Vaca RN Reason For Exception(s) bmat green 11/17/19 9:08 PM JENNAT Maria Antonia Navarrete RN Reason For Exception(s) calls appropriately 10/29 11:55 AM CDT Ana Vaca RN * ADL Screening Question Answer Date of Assessment Author Patient's Vision Adequate to Safely Complete Daily Activities Yes 11/15/2021 8:00 AM JENNAT Edith Griffin RN Patient's Judgement Adequate to Safely Complete Daily Activities Yes 11/15/2021 8:00 AM JENNAT Edith Griffin RN Patient's Memory Adequate to Safely Complete Daily Activities Yes 11/15/2021 8:00 AM Edith Butts RN Patient Able to Express Needs/Desires Yes 11/15/2021 8:00 AM JENNAT Edith Griffin RN Dressing Independent 11/15/2021 8:00 AM JENNAT Edith Dunham RN Grooming Independent 11/15/2021 8:00 AM Edith Rai RN Feeding Independent 11/15/2021 8:00 AM Edith Rai RN Bathing Independent 11/15/2021 8:00 AM Edith Rai RN Toileting Independent 11/15/2021 8:00 AM Edith Rai RN In/Out Bed Independent 11/15/2021 8:00 AM Edith Rai RN Walks in Home Independent 11/15/2021 8:00 AM Edith Patel RN Weakness of Legs None 11/15/2021 8:00 AM Edith Love RN Weakness of Arms/Hands None 11/15/2021 8:00 AM Edith Butts RN Hearing - Right Ear Functional 11/15/2021 8:00 AM Edith Nelson RN Hearing - Left Ear Functional 11/15/2021 8:00 AM Edith Butts RN Dominant hand? Right 11/15/2021 8:00 AM Edith Nelson RN Decline in ADLs in last 2 weeks? No 11/15/2021 8:00 AM Edith Butts RN * Therapy Consults Question Answer Date of Assessment Author PT Evaluation Needed 2 11/15/2021 8:00 AM Edith Colon RN OT Evaluation Needed 2 11/15/2021 8:00 AM Edith Colon RN CARBIDER Evaluation Needed 2 11/15/2021 8:00 AM Edith Butts RN * Assistive Devices Question Answer Date of Assessment Author Assistive Devices/DME Cane 11/15/2021 8:00 AM Edith Butts RN * Question Answer Date of Assessment Author Bed In Lowest Position Yes 11/16/2021 9:08 PM Maria Antonia Cisneros RN Bed Wheels Locked Yes 11/16/2021 9:08 PM Maria Antonia Cisneros, HERBERT * Hygiene Question Answer Date of Assessment Author Hygiene Level of Assistance Independent 11/16/2021 9:08 PM Maria Antonia Cisneros, HERBERT Toileting: Level of assistance Independent 11/16/2021 9:08 PM Maria Antonia Cisneros RN Reason not bathed/showered Patient/family refused bath/shower 11/15/2021 9:17 AM CDT Edith Griffin RN Perineal Care Fara Care 11/16/2021 9:08 PM CDT Maria Antonia Navarrete RN Bath Bathed/showered with chlorhexidine (CHG) 11/16/2021 9:08 PM CDT Maria Antonia Navarrete RN documented as of this encounter Mental Status * Question Answer Entry Date Author Neuro (WDL) WDL 11/16/2021 9:08 PM CDT Maria Antonia Mederos RN documented in this encounter Plan of Treatment Upcoming Encounters Date Type Department Care Team (Late st Contact Info) Description 08/27/2025 10:00 AM CDT Hospital Encounter [address] [address] Costa Keen MD [address] [place] [address] DR FONTANA [address] [place] [id number] 08/27/2025 10:00 AM CDT - 08/27/2025 10:30 AM CDT Surgery [address] [address] Costa Keen MD [address] [place] [address] DR FONTANA [address] [place] [id number] COLONOSCOPY Scheduled Procedures Name Priority Associated Diagnoses [...] the result is from a facility outside [facility] . 11/10/2021 11/10/2021 11/28/2021 3:05 AM CDT C. difficile suspected 04/18/2024 04/18/202404/18 8:32 PM PATROL MAN C. difficile suspected 11/09/2024 11/09/202411/09 11:42 PM CDT C. difficile suspected 11/20/2024 11/20/202411/20 1:35 PM CDT C. difficile suspected 12/01/2024 12/01/202412/01 7:39 AM CDT documented as of this encounter Care Teams Drug Safety Coordinator Relationship Specialty Start Date End Date Jayson Mendiola NP [address] [facility] [id number] [place] [address] PCP - General 10/25/20 12/21/23 Sawyer Azar DO [address] [place] [id number] PCP - General Family Practice 12/22/23 06/03/24 No, Physician PCP - General 06/04/24 11/28/24 Unknown, Notinfile PCP - General 11/29/24 Costa Keen MD [address] [place] [address] [id number] Consulting Physician Gastroenterology 12/22/23 documented as of this encounter
--- OUTSIDE RECORDS SUMMARY | 2025-04-10 14:13 | XMS_ITS | Encounter Summary ---
Author Organization [facility] Healthcare Address [address] [place] [address] Care Team Providers Care Skilled Nursing Facilities Professional Name Role Phone Costa Keen MD Unavailable [phone] Unknown, Notinfile Primary Care Provider Unavail able Encounter Details Date Type Department Care Team (Late st Contact Info) Description 04/10/2025 Telephone [facility] Gastroenterology at [address] [place] [address] [place], [place] Social History Tobacco Use Types Packs/Day Years Used Date Smoking Tobacco: Some Days Cigarettes Smokeless Tobacco: Never [facility] Utilities Answer Date Recorded In the past 12 months has [employer] electric, gas, oil, or water company threatened [...] often do you attend chur ch or denominational services? Never 12/03/2024 Do you belong to any clubs o r organizations such as sabianist groups, unions, fraternal or athletic groups, or [...] place to sleep or slept in a halfway (including now)? No 11/18/2021 Housing Stability Vital Sign Answer Taco e Recorded In the last 12 months, was t here a time when you were not able to pay the mortgage or rent on time? No 12/03/2024 In the past 12 months, how m any times have you moved where you were living? 0 12/03/2024 At any time in the past [address] [facility], were you homeless or living in a halfway (including now)? No 12/03/2024 AUDIT-C Answer Date [...] on file Legal Sex Female 7:19 PM AXLE POLISHER Gender Identity Not on file Sexual Orientation Not on file documented as of this encounter Miscellaneous Notes * Telephone Encounter - Alejandro Owens MA - 04/10/2025 11:16 AM AXLE POLISHER Pt called wants to know what's the difference between Ulcerative colitis and stomach flu no blood in stool, just vomiting and diarrhea please advise POLISHER documented in this encounter Plan of Treatment Upcoming Encounters Date Type Department Care Team (Late st Contact Info) Description 08/27/2025 10:00 AM CDT Hospital Encounter [address] [address] Costa Keen MD [address] [place] [address] DR FONTANA [address] [place] [id number] 08/27/2025 10:00 AM CDT - 08/27/2025 10:30 AM CDT Surgery [address] [address] Costa Keen MD [address] [place] [address] DR FONTANA [address] [place] [id number] COLONOSCOPY Scheduled Procedures Name Priority Associated Diagnoses Date/Ti me COLONOSCOPY Ulcerative colitis with complication, unspecified location (HCC) 08/27/2025 10:00 AM CDT documented as of this encounter Visit Diagnoses Not on filedocumented in this encounter Care Teams Skilled Nursing Facilities Professional Relationship Specialty Start Date End Date Unknown, Notinfile PCP - General 11/29/24 Costa Keen MD [address] [place] [address] [place] [address] Consulting Physician Gastroenterology 12/22/23 documented as of this encounter
== END 2025-04-10 13:59 | disposition home or self-care (01) ==
PROVIDERS: Emergency Provider Registered Nurse
DX: R11.2 Nausea with vomiting, unspecified (principal); R19.7 Diarrhea, unspecified; B34.9 Viral infection, unspecified; Z20.822 Contact with and (suspected) exposure to COVID-19; F17.290 Nicotine dependence, other tobacco product, uncomplicated
CPT/HCPCS: 87426; 87804; 99213; A9270; G0463

== ENCOUNTER 2025-05-15 12:06 | Emergency (ER) | payer MEDICAID, SELFPAY ==
[2025-05-15 12:21] VITALS: BP 148/74; PULSE 86; RESP 16; TEMP 36.6; O2SAT 100
--- NOTE | 2025-05-15 13:38 | ED.EAR ---
HPI - Ear Problem General Chief complaint: Ear Stated complaint: Bilateral ear pain Time Seen by Provider: 05/15/25 12:27 Source: patient and RN notes reviewed Mode of arrival: ambulatory Limitations: no limitations History of Present Illness HPI Narrative: 24-year-old female patient presents today complaining of bilateral ear clogging x3 days, right greater the left with occasional pain on the right when lying on that side. Associated symptoms include rhinorrhea, congestion, cough x1 week. She currently rates her pain 2/10 and has been taking Tylenol with some relief. Related Data Home Medications ?Medication ?Instructions ?Recorded ?Confirmed ?Last Taken ?Type depo shot 04/10/25 Unknown History medroxyprogesterone 150 mg/mL mg IM 05/15/25 Unknown History intramuscular syringe Allergies Allergy/AdvReac Type Severity Reaction Status Date / Time No Known Allergies Allergy Verified 05/15/25 12:19 [facility], [facility] Past Medical History Medical History IBS (irritable bowel syndrome) Ulcerative colitis Surgical History Surgical History History of orthopedic surgery repair of fractured femur with hardware Social History Social History Smoking status: Current every day smoker Tobacco type: e-cigarettes/vaping Alcohol use details: no alcohol use Substance use: current Substance use type: marijuana Last use: occasional Living arrangements: with family Gender identity (if verbalized by the patient): Female Comments At time of signature, I have reviewed and agree with nursing past medical, surgical, social and family history unless otherwise noted. Please see nursing chart for further information. There is no relevant family history pertinent to the presenting complaint Exam Narrative: GENERAL: Well-appearing, well-nourished, and in no acute distress. HEAD: Normocephalic, atraumatic. EYES: EOMI. No redness or drainage. Conjunctivae normal. ENT: Mucous membranes pink and moist. Nares clear. No rhinorrhea. Left TM normal. Right TM bulging with serous fluid. Throat normal. Uvula midline. NECK: Normal AROM. Supple. No lymphadenopathy. CHEST: No respiratory distress. Clear to auscultation. HEART: Regular rate and rhythm. No murmur appreciated. EXTREMITIES: Normal range of motion. No edema. SKIN: Warm, dry, no rash. Capillary refill normal. Normal skin turgor. NEURO: No focal deficits. Alert and oriented x3. Gait steady. PSYCH: Normal affect. No signs of depression or anxiety. Course Course Level of Care: Express Care Visit Vital Signs Vital signs: Vital Signs Temperature 97.8 F 05/15/25 12:21 Pulse Rate 86 05/15/25 12:21 Respiratory Rate 16 05/15/25 12:21 Blood Pressure 148/74 H 05/15/25 12:21 Pulse Oximetry 100 05/15/25 12:21 Oxygen Delivery Room Air 05/15/25 12:21 Temperature 97.8 F 05/15/25 12:21 Pulse Rate 86 05/15/25 12:21 Respiratory Rate 16 05/15/25 12:21 Blood Pressure 148/74 H 05/15/25 12:21 Pulse Oximetry 100 05/15/25 12:21 Oxygen Delivery Room Air 05/15/25 12:21 Reviewed MDM MDM Narrative Medical decision making narrative: 24-year-old female patient presents today complaining of bilateral ear clogging x3 days, right greater the left with occasional pain on the right when lying on that side. Associated symptoms include rhinorrhea, congestion, cough x1 week. She currently rates her pain 2/10 and has been taking Tylenol with some relief. Upon exam, patient has a bulging serous effusion on the right TM with left TM normal. Recommend starting Flonase and possibly Sudafed. Remainder of symptoms are likely viral in etiology. Discussed [id number] medication and duration of illness. Patient agrees with plan. Vital signs stable. Anticipatory guidance given. Differential Diagnosis Differential Diagnosis: Otitis media, otitis externa, ruptured TM, serous otitis, URI, cerumen impaction Critical Care Time Critical Care Time Critical Care Time: No Discharge Plan Discharge Clinical Impression: Upper respiratory infection Qualifiers: URI type: unspecified URI Qualified Code(s): J06.9 - Acute upper respiratory infection, unspecified Acute serous otitis media of right ear Qualifiers: Recurrence: not specified as recurrent Qualified Code(s): H65.01 - Acute serous otitis media, right ear Patient Disposition: Home Condition: Stable Instructions: Fluid In The Ear (Serous Otitis Media) (ED) Additional Instructions: You have a collection of fluid that is bubbling behind your right ear drum. You may want to try a steroid nasal spray such as Flonase and a decongestant such as Sudafed. Continue Tylenol if needed for discomfort. Follow-up with your PCP or ENT in 1 week if symptoms are not improving. Patient Language: Filipino Prescriptions: No Action depo shot medroxyprogesterone 150 mg/mL syringe IM Follow-up/Referrals: PHYSICIAN,CRANBERRY BOG SUPERVISOR [Primary Care Provider, Internal Medicine] Time of Disposition: 12:35
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
--- OUTSIDE RECORDS SUMMARY | 2025-05-15 14:02 | XMS_ITS | Encounter Summary ---
Author Organization [facility] Healthcare Address [address] [place] [address] Care Team Providers Care Rn Wound Name Role Phone Benny Mendiolais Rohini PAYAN Primary Care Provider [phone] Sawyer Azar DO Primary Care Provider [phone] Costa Keen MD Unavailable [phone] No, Physician Primary Care Provider [phone] Unknown, Notinfile Primary Care Provider Unavail able Encounter Details Date Type Department Care Team (Late st Contact Info) Description 11/13/2021 Telephone [facility] [address] [place] [address] Hyacinth Correa RN Social History [...] on file 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 Gender Identity Not on file Sexual Orientation [...] does not drink 11/15/2021 9:34 AM Edith Butst RN Q3: How often do you have [...] Complete Daily Activities Yes 11/15/2021 8:00 AM Edtih Butts RN Patient Able to Express Needs/Desires [...] 2 11/15/2021 8:00 AM Edith Colon RN RN HOUSE SUPERVISOR Evaluation Needed 2 11/15/2021 8:00 AM Edith [...] Care 11/16/2021 9:08 PM CDT Maria Antonia Navarerte RN Bath Bathed/showered with chlorhexidine (CHG) 11/16/2021 9:08 PM CDT Maria Antonia Navarrete RN documented as of this encounter Mental Status * Question Answer Entry Date Author Neuro (WDL) WDL 11/16/2021 9:08 PM CDT Maria Antonia Mederos RN documented in this encounter Plan of Treatment Upcoming Encounters Date Type Department Care Team (Late st Contact Info) Description 08/27/2025 10:00 AM CDT Hospital Encounter [address] [address] Costa Keen MD [address] [place] [address] DR FONTANA [address] [place] [id number] 08/27/2025 10:00 AM CDT - 08/27/2025 10:30 AM CDT Surgery [address] [address] Costa Keen MD [address] [place] [address] DR FONTANA [address] [place] [id number] COLONOSCOPY Scheduled Procedures Name Priority Associated Diagnoses [...] the result is from a facility outside [facility] . 11/10/2021 11/10/2021 11/28/2021 3:05 AM CDT C. 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 difficile suspected 11/09/2024 11/09/202411/09 11:42 PM CDT C. difficile suspected 11/20/2024 11/20/202411/20 1:35 PM CDT C. difficile suspected 12/01/2024 12/01/202412/01 7:39 AM CDT documented as of this encounter Care Teams Rn Wound Relationship Specialty Start Date End Date Jayson Mendiola NP [address] [facility] [id number] [place] [address] PCP - General 10/25/20 12/21/23 Sawyer Azar DO [address] [place] [id number] PCP - General Family Practice 12/22/23 06/03/24 No, Physician PCP - General 06/04/24 11/28/24 Unknown, Notinfile PCP - General 11/29/24 Costa Keen MD [address] [place] [address] [address] Consulting Physician Gastroenterology 12/22/23 documented as of this encounter
--- OUTSIDE RECORDS SUMMARY | 2025-05-15 14:03 | XMS_ITS | Continuity of Care Document ---
Author Organization [facility] Address [address] [place] [address] Care Team Providers Care Shuttle Fixer Name Role Phone CHANCE FREEDMAN Breaker Layer Assessment No assessment recorded. Plan of Treatment Reminders Order Date Submit Date Provider Last Modified By Organization Details Last Modified Time Details Appointments NURSE ONLY 2025 02:00P M Nurse Not available Not available Not available Lab None recorded. Referral None recorded. Procedures None recorded. Surgeries None recorded. Imaging None recorded. Medication Orders medroxypr ogesteron e 150 mg/mL intramusc ular syringe [address] [place] [address] Pharmacy [facility], [address] [place] [address], [id number], 05/01/2025 11:01:41 Patient TargetsNo targets recorded. Patient InstructionsNo instructions recorded. Reason for Referral None Reported. Problems Name Problem SNOMED Code Status Onset Date Resolution Date Notes Provider Name and Address Organization Details Recorded Time Colitis 31678340 Active BART Byers null, [place] - [facility] 14:11:21 59925417 Completed 202105/12/2022 Lucina Murray R[place] - [facility] 15:40:20 Depressive disorder 39491969 Active 2021 Lucina Murray R[place] [facility] 10:53:27 Anxiety 31471807 Active 2021 Lucina Murray R[place] [facility] 10:53:35 Problem Notes None recorded. Procedures Surgical History Date Name Laterality Status Provider Name and Address Organization Details Recorded Time 01/07/2025 Date of Last Pap Smear completed Isela Cordova RN [place] - [facility] 01/09/2025 16:33:26 Imaging Results None recorded. Procedure Notes None recorded. Medical Equipment None Reported. Allergies No known drug allergies Medications Name Sig Start Date Stop Date Status Note LastModified by Organization Details LastModified Time hydrocodone 5 mg-acetamin ophen 325 mg tablet TAKE 1 TABLET BY MOUTH EVERY 6 HOURS NEEDED FOR PAIN FOR UP TO 10 DOSES 01/07 completed Not Available Not Available Not Available ondansetron HCl 4 mg tablet TAKE 1 TABLET BY MOUTH EVERY 6 HOURS NEEDED FOR NAUSEA FOR VOMITING 01/07 completed Not Available Not Available Not Available prednisone 20 mg tablet TAKE 2 TABLETS BY MOUTH ONCE DAILY 01/07 completed Not Available Not Available Not Available prednisone 5 mg tablet TAKE 1 TABLET BY MOUTH ONCE DAILY DIRECTED active Not Available Not Available No t Available aspirin 81 mg tablet,loretta yed release active Not Available Not Available Not Available acetaminoph en 500 mg tablet 05/13 completed Not Available Not Available Not Available Macrobid 100 mg capsule Take 1 capsule every 12 hours by oral route for 7 days. 05/13 completed Not Available Not Available Not Available amoxicillin 875 mg tablet TAKE 1 TABLET BY MOUTH EVERY 12 HOURS 01/07 completed Not Available Not Available Not Available bisacodyl 10 mg rectal suppository active Not Available Not Available Not Available cephalexin 500 mg capsule Take 1 capsule 3 times a day by oral route for 10 days. 01/07 completed Not Available Not Available Not Available pantoprazol e 40 mg tablet,loretta yed release TAKE 1 TABLET BY MOUTH ONCE DAILY active Not Available Not Available No t Available docusate sodium 100 mg capsule 05/13 completed Not Available Not Available Not Available ibuprofen 600 mg tablet 01/07 completed Not Available Not Available Not Available medroxyprog esterone 150 mg/mL intramuscul ar suspension Inject 1 mL every 3 months by intramusc ular route. 2024 active Not Available Not Available Not Avai lable medroxyprog esterone 150 mg/mL intramuscul ar syringe Inject 1 mL every 3 months by intramusc ular route. 2024 active Not Available Not Available Not Avai lable cholestyram ine (with sugar) 4 gram powder for susp in a packet DISSOLVE 1 PACKET IN LIQUID AND DRINK BY MOUTH TWICE DAILY DIRECTED active Not Available Not Available No t Available mesalamine 1,000 mg rectal suppository INSERT 1 SUPPOSITO RY RECTALLY ONCE DAILY AT NIGHT active Not Available Not Available No t Available mesalamine 1.2 gram tablet,loretta yed release TAKE 4 TABLETS BY MOUTH ONCE DAILY WITH BREAKFAST active Not Available Not Available No t Available FeroSul 325 mg (65 mg iron) tablet TAKE 1 TABLET BY MOUTH ONCE DAILY active Not Available Not Available No t Available Stimulant Laxative Plus 8.6 mg-50 mg tablet 05/13 completed Not Available Not Available Not Available Vitals Date Recorded Body height Body mass index (BMI) Body weight Provider Name and Address Organization Details Last Updated DateTime 05/01/2025 165.1 cm 34 kg/m2 39272.13 g BART Byers [facility] 05/01/2025 09:20:16 Social History Question Answer Notes LastModified by [employer] ion Details LastModified Time Tobacco Smoking Status Never Smoker BART Byers null, [place] - [facility] 07/15/2021 10:55:18 In The 14 Days Before Symptom Onset, Have You Had Close Contact With A Laboratory-confir med COVID-19 While That Case Was Ill? No Information not available 07/15/2021 In The 14 Days Before Symptom Onset, Have You Had Close Contact With A Person Who Is Under Investigation For COVID-19 While That Person Was Ill? No Information not available 07/15/2021 Have You Been To An Area Known To Be High Risk For COVID-19? No Information not available 07/15/2021 Which Illicit Or Recreational Drugs Have You Used? Marijuana Information not available 07/15/2021 What Was The Date Of Your Most Recent Tobacco Screening? 01/07/2025 Trying To Quit Information not available 01/07/2025 Are You Sexually Active? Yes Information not available 10/29/2021 Has Tobacco Cessation Counseling Been Provided? Yes Information not available 07/15/2021 On What Date Was Tobacco Cessation Counseling Provided? 01/07/2025 Information not available 01/07/2025 Have You Used IV Drugs? No Information not available 07/15/2021 How Many Years Have You Used E-cigarettes Or Vape? 7 Information not available 07/15/2021 Sex: Female Functional Status Question Answer Note LastModified by Organizat ion Details LastModified Time Do you use any illicit or recreational drugs? Yes Information not available 07/15/2021 Do you or have you ever used any other forms of tobacco or nicotine? Yes Information not available 07/15/2021 What is your level of alcohol consumption? None Information not available 07/15/2021 Do you or have you ever used smokeless tobacco? Never used smokeless tobacco Information not available 07/15/2021 Do you or have you ever used e-cigarettes or vape? Current user of electronic cigarettes 5% nicotene Information not available 07/15/2021 Mental Status None recorded. Family History Relationship Description Onset Age of this Age Resolved Age Notes LastModified by Organization Details LastModified Time Mother Malignant neoplasm of ovary cgracema Not available 2021 10:54:17 Medical History Condition Response Anxiety Disorder Y Depression Y Gynecological History Statement/Question Response On BCP's at Conception? N Menses Monthly N STIs/STDs Y HPV Vaccine N Date of Last Pap Smear 01/07/2025 Sexual Problems? N Age at Menarche 14 Current Control Method Depo-Alley Worker a LMP Definite Desired Control Method Implant Obstetrics History GPAL:G 1 P 1 0 0 1 Type Value Full Term 1 Living 1 Total 1 Immunizations Vaccine Type Date Status Note Provider Nam e and Address Organization Details Recorded Time varicella 7 completed BART By[place], [place] - [facility] 05/13/2022 15:06:44 IPV 5 completed BART [place] [facility] 05/13/2022 15:06:44 COVID-19, mRNA, LNP-S, PF, 30 mcg/0.3 mL dose 1 completed Lucina Terri, [place] [facility] 05/13/2022 15:06:44 DTaP, unspecified formulation 7 completed Lucina Terri, [place] [facility] 05/13/2022 15:06:44 Hep B, adolescent or pediatric 3 completed Lucina Murray, [place] [facility] 05/13/2022 15:06:44 DTaP 4 completed Lucina Terri, [place] [facility] 05/13/2022 15:06:44 Hep A, ped/adol, 2 dose 6 completed Lucina Murray, [place] [facility] 05/13/2022 15:06:44 IPV 4 completed Lucina Murray, [place] [facility] 05/13/2022 15:06:44 IPV 7 completed Lucina Murray, [place] [facility] 05/13/2022 15:06:44 Hep A, ped/adol, 2 dose 5 completed Lucina Murray, [place] [facility] 05/13/2022 15:06:44 HPV9 6 completed Lucina Murray, [place] [facility] 05/13/2022 15:06:44 meningococcal MCV4P 1 completed Lucina Murray, [place] [facility] 05/13/2022 15:06:44 Hep B, adolescent or pediatric 4 completed Lucina Murray, [place] [facility] 05/13/2022 15:06:45 Hep A, ped/adol, 2 dose 6 completed Lucina Murray, [place] [facility] 05/13/2022 15:06:45 MMR 7 completed Lucina Murray, [place] [facility] 05/13/2022 15:06:45 DTaP, 5 pertussis antigens 5 completed Lcuina Murray, [place] [facility] 05/13/2022 15:06:45 Pneumococcal conjugate PCV 13 5 completed Lucina [place], [place] [facility] 05/13/2022 15:06:45 HPV9 8 completed Lucina [place], [place] [facility] 05/13/2022 15:06:45 varicella 4 completed Lucina [place], [place] [facility] 05/13/2022 15:06:45 Td (adult), 5 Lf tetanus toxoid, preservative free, adsorbed 6 completed Lucina [place], [place] [facility] 05/13/2022 15:06:45 Influenza, split virus, quadrivalent, PF 8 completed Lucina [place], [place] [facility] 05/13/2022 15:06:45 Hep B, adolescent or pediatric 3 completed Lucina [place] [facility] 05/13/2022 15:06:45 pneumococcal conjugate PCV 7 3 completed Lucina [place], [place] [facility] 05/13/2022 15:06:45 Tdap 6 completed Lucina [place] [facility] 05/13/2022 15:06:45 meningococcal MCV4P 6 completed Lucina Murray, [place] [facility] 05/13/2022 15:06:45 Hib (PRP-OMP) 5 completed Lucina Murray, [place] [facility] 05/13/2022 15:06:45 Hib (PRP-OMP) 4 completed Lucina [place], [place] [facility] 05/13/2022 15:06:45 Tdap 8 completed Lucina [place], [place] [facility] 05/13/2022 15:06:45 DTaP 3 completed Lucina Murray, [place] [facility] 05/13/2022 15:06:45 pneumococcal conjugate PCV 7 4 completed Lucina Terri, [place] [facility] 05/13/2022 15:06:45 Hep B, adolescent or pediatric 3 completed Lucina Terri, [place] [facility] 05/13/2022 15:06:45 Pneumococcal conjugate PCV 13 5 completed Lucina Terri, [place] [facility] 05/13/2022 15:06:45 Hib, unspecified formulation 4 completed Lucian Terri, [place] [facility] 05/13/2022 15:06:45 DTaP 5 completed Lucina Terri, [place] [facility] 05/13/2022 15:06:45 Hib, unspecified formulation 3 completed Lucina Terri, [place] [facility] 05/13/2022 15:06:45 MMR 4 completed Lucina Terri, [place] [facility] 05/13/2022 15:06:45 IPV 3 completed Lucina Terri, [place] [facility] 05/13/2022 15:06:45 Tdap 2 completed Not Available [facility] 01/07/2025 13:55:13 Past Encounters Encounter ID Performer Location Encounter Start Date Encounter Closed Date Diagnosis/Indication Diagnosis SNOMED-CT Code Diagnosis ICD10 Code Diagnosis IMO Codes Diagnosis Note [id number] MD [facility] [address] [place], [place] [address] [address] 05/01/2025 08:58:27 05/02/2025 11:26:53 Contraception status 451834508 Z30.013 Health Concerns Section Related Observation LastModified by Organization Detai ls LastModified Time None Recorded Concern Status LastModified by Organization Details LastModified Time None Recorded Payers Encounter Date Sequence Insurance Name Policy Number Policy San Covered Member ID San Member ID Guarantor Name 05/01/2025 1 [place] [facility] [place] OF PUBLIC AID Rubi Mascorro [id number] Rubi Mascorro OBGyn Episode No OBEpisode recorded.
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
== END 2025-05-15 12:41 | disposition home or self-care (01) ==
PROVIDERS: Emergency Provider Nurse Practitioner
DX: J06.9 Acute upper respiratory infection, unspecified (principal); H65.01 Acute serous otitis media, right ear; F17.290 Nicotine dependence, other tobacco product, uncomplicated; F12.90 Cannabis use, unspecified, uncomplicated
CPT/HCPCS: 99211; G0463